=== PATIENT | female | born 1980 | race Caucasian/White ===

== ENCOUNTER 2020-08-08 15:35 | Emergency (ER) | payer OTHER, SELFPAY ==
--- NOTE | ~2020-08-08 | XR_ITS ---
EXAMINATION: XR foot RT min 3V EXAM DATE: 08/08/2020 16:04 INDICATION: No known recent injury provided at this time. Pain of the right foot. TECHNIQUE: Right foot dorsoplantar, lateral and oblique projections obtained and reviewed. Compariso n is made to prior examination from 02/24/2012. FINDINGS: Right metatarsal bones unremarkable. No periosteal reaction or band of sclerosis to sugges t subacute stress fracture. There are no acute fractures or dislocations identified. There is no s ubcutaneous gas. The soft tissue is unremarkable. There are no radiopaque foreign bodies. Small in ferior calcaneal spur. IMPRESSION: Small right calcaneal inferior spur. Reviewed, dictated and finalized at location A. SWITCHER
[2020-08-08 15:54] VITALS: BP 130/82; PULSE 83; RESP 18; TEMP 36.9; O2SAT 98
[2020-08-08] MEDS: KETOROLAC (*BKC) 60 MG/2 ML VIAL IM (16:04)
--- NOTE | 2020-08-08 16:36 | ED.GENADULT ---
HPI - General Adult General Chief complaint: Extremity Injury, Lower Stated complaint: R foot pain Time Seen by Provider: 08/08/20 16:18 Source: patient Mode of arrival: ambulatory Limitations: no limitations History of Present Illness HPI narrative: Uriel states she has had pain in her right foot, ongoing for months. This is a sharp pain, moderately severe to severe in the forefoot area. This is made worse with standing, or by bearing weight. Measures taken at home, including ibuprofen have not brought adequate relief. Related Data Home Medications Medication Instructions Recorded Confirmed No Home Medications 08/08/20 08/08/20 Allergies Allergy/AdvReac Type Severity Reaction Status Date / Time aspirin Allergy Nausea and Verified 08/08/20 15:52 Vomiting hydrocodone Allergy Nausea and Verified 08/08/20 15:52 Vomiting oxycodone Allergy Nausea and Verified 08/08/20 15:52 Vomiting Review of Systems Constitutional: Constitutional: Reports no additional constitutional complaints Eyes: Eyes: Reports no additional eye complaints ENT: Reports system reviewed and no additional complaints, except as documented Cardiovascular: Cardiovascular: Reports no additional cardiovascular complaints Respiratory: Respiratory: Reports no additional respiratory complaints Gastrointestinal: Gastrointestinal: Reports no additional gastrointestinal complaints Genitourinary: Genitourinary: Reports no additional female genitourinary complaints Musculoskeletal: Musculoskeletal: Reports no additional musculoskeletal complaints Integumentary/Breasts: Skin/Breast: Reports system reviewed and no additional complaints, except as docu Neurologic: Reports system reviewed and no additional complaints, except as documented Psychiatric: Psychiatric: Reports no additional psychiatric complaints Endocrine: Endocrine: Reports no additional endocrine complaints Hematologic/Lymphatic: Hematologic/Lymphatic: Reports no additional hematologic/lymphatic complaints Allergic/Immunologic: Allergic/Immunologic: Reports no additional allergic/immunologic complaints PMFSH Past Medical History Medical History (Updated 08/09/20 @ 04:59 by Patricio Rosas MD) CVA (cerebral vascular accident) Fibromyalgia Surgical History Surgical History No significant past surgical history Family History Family History (Updated 08/09/20 @ 04:56 by Patricio Rosas MD) Mother No significant family history Exam Const: General: healthy appearing and no acute distress Nutritional Appearance: well nourished Orientation/consciousness: patient oriented x3 HENMT: Head: normal to inspection Face and sinus: normal facial exam Eyes: Conjunctivae: conjunctivae normal Neck: Neck: normal visual inspection Chest: Chest palpation & inspection: normal inspection of the chest Resp: Effort & Inspection: normal respiratory effort Auscultation: clear to auscultation bilaterally Cardio: Rate: regular rate Rhythm: regular rhythm GI: GI Palp: Yes Soft to palpation Other: nontender Skin: General skin exam: normal color Neuro: General: patient oriented x3 and moves all extremities Other: She appears to have some numbness of the medial aspect of her great toe on the affected foot. It was hard to tell just what area was affected, but appears to be part of the great toe. I could appreciate no weakness in that foot whatsoever. It appears she has a bit of a mononeuritis in this area, which she says has been chronic and unchanged for many months. Extrem: General: normal to inspection Psych: Mental Status: mental status grossly normal Affect: Anxious affect present Thought content: Yes Normal thought content present Course Course Emergency Course: I reviewed physical exam findings with her. She appears to have some mild neurological deficits in the affected foot that may be due to a mononeu
== END 2020-08-08 16:54 | disposition home or self-care (01) ==
PROVIDERS: Emergency Provider Emergency Medicine; PCP Nurse Practitioner Family
DX: M79.671 Pain in right foot (principal)
CPT/HCPCS: 73630; 96372; 99283; J1885

== ENCOUNTER 2023-06-28 20:20 | Emergency (ER) | payer OTHER, SELFPAY ==
[2023-06-28 20:34] VITALS: PULSE 68; RESP 18; TEMP 37; O2SAT 97
[2023-06-28] MEDS: AMOXICILLIN/CLAVULANATE K 875-125 MG TAB 1 TABLET PO (20:48)
[2023-06-28] MEDS: methylPREDNISolone ACETATE 40 MG/ML VIAL 80 MG IM (20:49)
--- NOTE | 2023-06-28 21:00 | ED.ALLEREA ---
HPI - Allergic Reaction General Chief complaint: Allergic Reaction Stated complaint: Right Lower Lip Swelling Time Seen by Provider: 06/28/23 20:23 Source: patient and family Mode of arrival: ambulatory Limitations: no limitations History of Present Illness HPI narrative: this is a 42-year-old female who presents with right lower lip swelling that had a lip piercing approximately 1 month ago and earlier today noticed that there was some crusty discharge from the area and swelling had progressively gotten worse, no other symptoms no wheezing no tongue swelling no shortness of breath no fever chills. MD complaint: allergic reaction and facial swelling Onset (ago): hour(s) Exposure: unknown Symptoms: lip swelling Related Data Allergies Allergy/AdvReac Type Severity Reaction Status Date / Time acetaminophen [Vicodin] Allergy Intermediate nausea Verified 10/01/22 12:39 naproxen Allergy Intermediate Verified 10/01/22 12:39 sumatriptan [Imitrex] Allergy Intermediate headache, Verified 10/01/22 12:39 nausea aspirin Allergy Nausea and Verified 10/01/22 12:39 Vomiting hydrocodone Allergy Nausea and Verified 10/01/22 12:39 Vomiting oxycodone Allergy Nausea and Verified 10/01/22 12:39 Vomiting Sulfonamides Allergy Intermediate Uncoded 10/01/22 12:39 Review of Systems Review of Systems: All systems reviewed & are unremarkable except as noted in HPI and below PMFSH Past Medical History Medical History CVA (cerebral vascular accident) Fibromyalgia Surgical History Surgical History No significant past surgical history Family History Family History Mother No significant family history Social History Social History Smoking status: Never smoker Exam Const: General: healthy appearing and no acute distress Nutritional Appearance: well nourished Orientation/consciousness: patient oriented x3 Limitations: no limitations HENMT: Other: Right lower lip swelling around the piercing of her right lower lip with some crusty discharge Eyes: Conjunctivae: conjunctivae normal EOM: EOMs intact bilaterally Neck: Neck: normal visual inspection, no lymphadenopathy and no meningeal signs Chest: Chest palpation & inspection: normal inspection of the chest Resp: Effort & Inspection: normal respiratory effort Auscultation: clear to auscultation bilaterally Cardio: Rate: regular rate Rhythm: regular rhythm GI: GI Palp: Yes Soft to palpation Skin: Wounds: wounds noted Neuro: General: patient oriented x3 and moves all extremities Psych: Mental Status: mental status grossly normal Course Course Emergency Course: patient received a dose of Depo-Medrol IM 80mg, and dose of Augmentin. Vital Signs Vital signs: Vital Signs Temperature 37.0 C 06/28/23 20:34 Pulse Rate 68 06/28/23 20:34 Respiratory Rate 18 06/28/23 20:34 Pulse Oximetry 97 06/28/23 20:34 Oxygen Delivery Room Air 06/28/23 20:34 Temperature 37.0 C 06/28/23 20:34 Pulse Rate 68 06/28/23 20:34 Respiratory Rate 18 06/28/23 20:34 Pulse Oximetry 97 06/28/23 20:34 Oxygen Delivery Room Air 06/28/23 20:34 Critical Care Time Critical Care Time Critical Care Time: No Discharge Plan Discharge Clinical Impression: Cellulitis and abscess of face Allergic reaction Qualifiers: Encounter type: initial encounter Qualified Code(s): T78.40XA - Allergy, unspecified, initial encounter Patient Disposition: Home, Self-Care Condition: Stable Instructions: Antibiotic Form, Cellulitis (ED), Allergies (ED) Additional Instructions: take medicine as prescribed and follow-up primary care physician if symptoms persist or worsen. Prescriptions: New prednisone 20 mg tablet
[2023-06-28 21:09] VITALS: BP 135/74; PULSE 82; RESP 18; TEMP 36.8; O2SAT 99
== END 2023-06-28 21:14 | disposition home or self-care (01) ==
PROVIDERS: Emergency Provider Emergency Medicine; PCP Nurse Practitioner Family
DX: L03.211 Cellulitis of face (principal); L02.01 Cutaneous abscess of face; T78.40XA Allergy, unspecified, initial encounter; M79.7 Fibromyalgia; Z86.73 Personal history of transient ischemic attack (TIA), and cerebral infarction without residual deficits
CPT/HCPCS: 96372; 99283; A9270; J1030

== ENCOUNTER 2024-09-26 20:50 | Emergency (ER) | payer SELFPAY ==
--- NOTE | ~2024-09-26 | CT_ITS ---
CLINICAL INDICATION: Buttock abscess COMPARISON: None. TECHNIQUE: Multiple contiguous axial images of the abdomen and pelvis were performed following the ad ministration of with 100 mL Omnipaque-350 intravenous contrast The dose-length product (DLP) was 1518.55 mGy-cm. Automated exposure control and iterative reconstruction technique were employed. FINDINGS/OBSERVATIONS: Visualized lower thorax: The bilateral lung bases are clear. The heart is of normal size, without pericardial effusion. Small hiatal hernia is present. Liver: The liver enhances homogeneously, and is enlarged measuring 20 cm in longitudinal dimension. Gallbladder and biliary system: The gallbladder is only minimally distended, and otherwise unremarkable. Pancreas: The pancreas enhances homogeneously without ductal dilatation. Spleen: The spleen enhances homogeneously and is borderline enlarged measuring 12 cm in longitudinal dimensio n. Kidneys: The bilateral kidneys enhance symmetrically without hydronephrosis or renal calculi. Adrenal glands: Unremarkable. Gastrointestinal tract: Trace fecal stasis Minimal chronic change APPENDIX: The air-filled appendix is of normal caliber (axial series, images 108 through 126). Vasculature: Unremarkable. No aneurysmal dilatation or significant stenosis. Lymph nodes: No pathologically enlarged or morphologically suspicious lymph nodes within the retroperitoneum or at the root of the mesentery. Pelvic structures: The bladder is decompressed, limiting its evaluation. The uterus is anteverted and anteflexed, and otherwise unremarkable. Body wall and musculoskeletal: Metallic clips demonstrating significant streak artifact within the lower abdomen and pelvis. No significant degenerative disease within the lower thoracic or lumbosacral spine. Soft tissues: Within the soft tissues in the area of clinical concern is significant induration and peroneal thicke casey without a discrete drainable fluid collection appreciated. IMPRESSION: No drainable fluid collection within the area of clinical concern, as detailed above. Hepatomegaly. Borderline splenomegaly. Reviewed, dictated and finalized at location A. S AND SERVICE ASSOCIATE
[2024-09-26 20:50] VITALS: BP 120/81; PULSE 125; RESP 20; TEMP 36.4; O2SAT 98
--- NOTE | 2024-09-26 20:58 | ED.GENADULT ---
HPI - General Adult General Chief complaint: Skin/Abscess/Foreign Body Stated complaint: bug bite Time Seen by Provider: 09/26/24 20:53 History of Present Illness HPI narrative: Uriel is a 44F with a PMH of a CVA and fibromyalgia that presented with concerns of an infected spider bite on her left buttock. She felt a pinch on her buttock 3 days ago and later started to notice swelling pain, and drainage. She reports having a fever of up to 103 today. There is no nausea, vomiting, diarrhea, CP or dyspnea. Related Data Allergies Allergy/AdvReac Type Severity Reaction Status Date / Time acetaminophen (Vicodin) Allergy Intermediate nausea Verified 09/26/24 21:47 naproxen Allergy Intermediate Difficulty Verified 09/26/24 21:47 Breathing sumatriptan (Imitrex) Allergy Intermediate headache, Verified 09/26/24 21:47 nausea aspirin Allergy Nausea and Verified 09/26/24 21:47 Vomiting hydrocodone Allergy Nausea and Verified 09/26/24 21:47 Vomiting oxycodone Allergy Nausea and Verified 09/26/24 21:47 Vomiting Sulfonamides Allergy Intermediate Other Uncoded 09/26/24 21:47 Review of Systems Review of Systems: All systems reviewed & are unremarkable except as noted in HPI and below PMFSH Past Medical History Medical History Fibromyalgia CVA (cerebral vascular accident) Surgical History Surgical History No significant past surgical history Family History Family History Mother No significant family history Social History Social History Smoking status: Never smoker Exam Const: General: cooperative, healthy appearing, comfortable, no acute distress, well developed, alert, awake and Physically active Orientation/consciousness: oriented to person, oriented to place and oriented to time HENMT: Head: normal to inspection, normocephalic and atraumatic Ears: hearing grossly normal bilaterally and external ears normal Face/Nose/Sinus: Normal external nose present Eyes: General: appearance normal, both eyes and all related structures Periorbital: periorbital findings normal Sclera: sclerae normal Pupils: Equal, round and reactive pupils present Neck: Neck: normal visual inspection Chest: Chest palpation & inspection: normal inspection of the chest Resp: Effort & Inspection: normal respiratory effort, able to speak in complete sentences and no respiratory distress Cardio: Jugular venous distension: no JVD Skin: General skin exam: normal color and no rashes or lesions noted Other: left buttock had a 1 cm ulcer draining purulent drainage with underlying induration Neuro: General: oriented to person, oriented to place and oriented to time Cranial nerves: Yes Equal, round and reactive pupils present Extrem: General: normal to inspection Course Course Emergency Course: Ordered labs, wound culture, viral testing, clindamycin and IV fluids Labs revealed leukocytosis, mild anemia, elevated CRP, and otherwise normal chemistries Orderd CT scan. CLINICAL INDICATION: Buttock abscess COMPARISON: None. TECHNIQUE: Multiple contiguous axial images of the abdomen and pelvis were performed following the administration of with 100 mL Omnipaque-350 intravenous contrast The dose-length product (DLP) was 1518.55 mGy-cm. Automated exposure control and iterative reconstruction technique were employed. FINDINGS/OBSERVATIONS: Visualized lower thorax: The bilateral lung bases are clear. The heart is of normal size, without pericardial effusion. Small hiatal hernia is present. Liver: The liver enhances homogeneously, and is enlarged measuring 20 cm in longitudinal dimension. Gallbladder and biliary system: The gallbladder is only minimally distended, and otherwise unremarkable. Pancreas: The pancreas enhances homogeneously without ductal dilatation. Spleen: The spleen enhances homogeneously and is borderline enlarged measuring 12 cm in longitudinal dimension. Kidneys: The bilateral kidneys enhance symmetrically without hydronephrosis or renal calculi. Adrenal glands: Unremarkable. Gastrointestinal tract: Trace fecal stasis Minimal chronic change APPENDIX: The air-filled appendix is of normal caliber (axial series, images 108 through 126). Vasculature: Unremarkable. No aneurysmal dilatation or significant stenosis. Lymph nodes: No pathologically enlarged or morphologically suspicious lymph nodes within the retroperitoneum or at the root of the mesentery. Pelvic structures: The bladder is decompressed, limiting its evaluation. The uterus is anteverted and anteflexed, and otherwise unremarkable. Body wall and musculoskeletal: Metallic clips demonstrating significant streak artifact within the lower abdomen and pelvis. No significant degenerative disease within the lower thoracic or lumbosacral spine. Soft tissues: Within the soft tissues in the area of clinical concern is significant induration and peroneal thickening without a discrete drainable fluid collection appreciated. IMPRESSION: No drainable fluid collection within the area of clinical concern, as detailed above. Hepatomegaly. Borderline splenomegaly. Vital Signs Vital signs: Vital Signs Temperature 97.6 F 09/26/24 20:50 Pulse Rate 125 H 09/26/24 20:50 Respiratory Rate 20 09/26/24 20:50 Blood Pressure 120/81 09/26/24 20:50 Pulse Oximetry 98 09/26/24 20:50 Oxygen Delivery Room Air 09/26/24 20:50 Temperature 97.6 F 09/26/24 20:50 Pulse Rate 125 H 09/26/24 20:50 Respiratory Rate 20 09/26/24 20:50 Blood Pressure 120/81 09/26/24 20:50 Pulse Oximetry 98 09/26/24 20:50 Oxygen Delivery Room Air 09/26/24 20:50 Medical Decision Making Vital Signs Vital Signs: Vital Signs Temperature 97.6 F 09/26/24 20:50 Pulse Rate 125 H 09/26/24 20:50 Respiratory Rate 20 09/26/24 20:50 Blood Pressure 120/81 09/26/24 20:50 Pulse Oximetry 98 09/26/24 20:50 Oxygen Delivery Room Air 09/26/24 20:50 Temperature 97.6 F 09/26/24 20:50 Pulse Rate 125 H 09/26/24 20:50 Respiratory Rate 20 09/26/24 20:50 Blood Pressure 120/81 09/26/24 20:50 Pulse Oximetry 98 09/26/24 20:50 Oxygen Delivery Room Air 09/26/24 20:50 Lab Data 09/26/24 21:14 09/26/24 21:14 Labs: Lab Results 09/26/24 09/26/24 Range/Units 21:08 21:14 WBC 14.5 H (4.8-10.8) K/mm3 RBC 4.04 L (4.20-5.40) M/mm3 Hgb 10.9 L (12.0-15.0) g/dL Hct 33.5 L (35.0-49.0) % MCV 82.9 (78.0-102.0) fL MCH 27.0 (27.0-31.0) pg MCHC 32.5 (32-36) g/dL RDW 14.6 H (11.6-14.4) % Plt Count 335 (150-420) K/mm3 MPV 9.1 L (9.2-11.8) fl Immature Gran % (Auto) 0.4 H (0.0-0.0) % Neut % (Auto) 73.8 H (50.0-70.0) % Lymph % (Auto) 16.8 L (18.0-42.0) % [place] % (Auto) 7.9 (2.0-11.0) % Eos % (Auto) 0.8 L (1.0-6.0) % Baso % (Auto) 0.3 (0.0-1.0) % Lymph # (Auto) 2.43 (1.10-4.50) K/mm3 [place] # (Auto) 1.14 H (0.10-0.90) K/mm3 Eos # (Auto) 0.12 (0.02-0.50) K/mm3 Baso # (Auto) 0.04 (0.00-0.10) K/mm3 Abs Immat Gran (auto) 0.06 H (0.00-0.00) K/mm3 Absolute Neuts (auto) 10.69 H (1.70-7.20) K/mm3 Absolute Nucleated RBC 0.00 (0.00-0.00) K/mm3 Nucleated RBC % 0.0 (0-0.0) % Sodium 140 (136-145) mmol/L Potassium 3.7 (3.5-5.1) mmol/L Chloride 104 (98-108) mmol/L Carbon Dioxide 24 (21-32) mmol/L Anion Gap 12 (4-12) mmol/L BUN 9 (7-18) mg/dL Creatinine 0.75 (0.55-1.02) mg/dL Estim Creat Clear Calc 104 ml/min Estimated GFR > 60 (59 - ) Glucose 105 H (70-99) mg/dL Calculated Osmolality 288 (285-295) mOsm/kg Lactic Acid 1.2 (0.4-2.0) mmol/L Calcium 8.7 (8.5-10.1) mg/dL Total Bilirubin 0.3 (0.00-1.00) mg/dL AST < 10 L (15-37) U/L ALT 20 (14-59) U/L Alkaline Phosphatase 49 (46-116) U/L C-Reactive Protein 7.6 H (0.0-0.9) mg/dL Total Protein 6.8 (6.4-8.2) g/dL Albumin 3.3 L (3.4-5.0) g/dL Urine Test Negative Influenza A (RT-PCR) Negative (Negative) Influenza B (RT-PCR) Negative (Negative) RSV (RT-PCR) Negative (Negative) SARS-CoV-2 RNA (RT-PCR) Negative (Negative) Discharge Plan Discharge Clinical Impression: Cellulitis Patient Disposition: Home, Self-Care Condition: Stable Instructions: Cellulitis (ED) Patient Language: Citizen Of [place] Prescriptions: New clindamycin HCl 150 mg capsule 450 mg PO TID 5 Days Qty: 45 0RF Follow-up/Referrals: Olamide Dawson NP [Primary Care Provider] - Stand Alone Forms: Work/School Release IP
[2024-09-26 21:20] LABS: Basophils Absolute Auto 0.04 K/mm3 (0.00-0.10); Basophils Percent Auto 0.3 % (0.0-1.0); Eosinophils Absolute Auto 0.12 K/mm3 (0.02-0.50); Eosinophils Percent Auto 0.8 % (1.0-6.0); Hematocrit 33.5 % (35.0-49.0); Hemoglobin 10.9 g/dL (12.0-15.0); Immature Granulocyte Absolute 0.06 K/mm3 (0.00-0.00); Immature Granulocyte Percent A 0.4 % (0.0-0.0); Lymphocytes Absolute Auto 2.43 K/mm3 (1.10-4.50); Lymphocytes Percent Auto 16.8 % (18.0-42.0); Mean Corpuscular HGB Conc 32.5 g/dL (32-36); Mean Corpuscular Volume 82.9 fL (78.0-102.0); Mean Platelet Volume 9.1 fl (9.2-11.8); Monocytes Absolute Auto 1.14 K/mm3 (0.10-0.90); Monocytes Percent Auto 7.9 % (2.0-11.0); Neutrophils Absolute Auto 10.69 K/mm3 (1.70-7.20); Neutrophils Percent Auto 73.8 % (50.0-70.0); Platelet Count Result 335 K/mm3 (150-420); Red Blood Count 4.04 M/mm3 (4.20-5.40); Red Cell Distribution Width 14.6 % (11.6-14.4); White Blood Count 14.5 K/mm3 (4.8-10.8)
[2024-09-26] MEDS: CLINDAMYCIN 600 MG/D5W 50 ML 600 MG/50 ML PIGGYBACK 100 MG IVPB (21:23)
[2024-09-26] MEDS: SODIUM CHLORIDE 0.9% IV 1,000 ML 999 ML IV CONT (21:24)
[2024-09-26 21:34] LABS: Pregnancy On Board Control Positive; Urine Pregnancy Test Negative
[2024-09-26 21:36] LABS: Lactic Acid Reflex 1.2 mmol/L (0.4-2.0)
[2024-09-26 21:40] LABS: Alanine Aminotransferase 20 U/L (14-59); Albumin Level 3.3 g/dL (3.4-5.0); Alkaline Phosphatase 49 U/L (46-116); Anion Gap 12 mmol/L (4-12); Aspartate Amino Transferase < 10 U/L (15-37); Bilirubin,Total 0.3 mg/dL (0.00-1.00); Blood Urea Nitrogen 9 mg/dL (7-18); CRP 7.6 mg/dL (0.0-0.9); Calcium 8.7 mg/dL (8.5-10.1); Carbon Dioxide 24 mmol/L (21-32); Chloride 104 mmol/L (98-108); Estimated CRCL calculation 104 ml/min; Estimated Glomerular Filt Rate > 60; Glucose 105 mg/dL (70-99); Osmolality Calculated 288 mOsm/kg (285-295); Potassium 3.7 mmol/L (3.5-5.1); Sodium 140 mmol/L (136-145); Total Protein 6.8 g/dL (6.4-8.2)
[2024-09-26 21:59] LABS: SARS-CoV-2 RNA PCR Negative (Negative)
[2024-09-26 22:00] LABS: Influenza A QL RT-PCR Negative (Negative); Influenza B QL RT-PCR Negative (Negative); RSV RNA, RT-PCR Negative (Negative)
--- NOTE | 2024-09-26 22:07 | PC.NURSE ---
Pt gone to CT
[2024-09-26 23:00] VITALS: BP 125/75; PULSE 83; RESP 16; TEMP 37.1; O2SAT 100
--- NOTE | 2024-09-29 14:11 | PC.NURSE ---
culture from buttock not performed due to inclement weather and specimen stability. pt started on clindamycin. no change needed per dr forde.
--- OUTSIDE RECORDS SUMMARY | 2024-10-03 09:21 | XMS_ITS | Encounter Summary ---
Author Organization [facility] Address [address] [place] [address]. [place] [address] [place] [address] Care Team Providers Care Leaf Conditioner Helper Name Role Phone Unavailable Primary Care Provider Unavailabl e Encounter Details Date Type Department Care Team (Late st Contact Info) Description 10/22/[address] 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
--- OUTSIDE RECORDS SUMMARY | 2024-10-03 09:21 | XMS_ITS | Encounter Summary ---
Author Organization [facility] Address [address] [place] [address]. [place] [address] [place] [address] Care Team Providers Care Web Content Producer Name Role Phone Unavailable Primary Care Provider Unavailabl e Encounter Details Date Type Department Care Team (Late st Contact Info) Description 12/07/[address] [facility] [address] [place] [address] Alejandro Small MD [address] [place] [phone] Social History Tobacco Use Types Packs/Day Years Used Date Smoking Tobacco: Never Assessed Comments Unknown Sex and Gender Information Value Date Recorded Sex Assigned at Not on file Legal Sex Female 5:50 PM RETURN TO SERVICE INSPECTOR Gender Identity Not on file Sexual Orientation Not on file documented as of this encounter Plan of Treatment Not on file documented as of this encounter Visit Diagnoses Diagnosis Pain in joint, pelvic region and thigh documented in this encounter
--- OUTSIDE RECORDS SUMMARY | 2024-10-03 09:21 | XMS_ITS | Encounter Summary ---
Author Organization [facility] Address [address] [place] [address]. 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
--- OUTSIDE RECORDS SUMMARY | 2024-10-03 09:21 | XMS_ITS | Encounter Summary ---
Author Organization [facility] Address [address] [place] [address]. [place], [place] [id number] [place] [address] Care Team Providers Care Presser And Blocker Knitted Goods Name Role Phone Olamide Dawson Primary Care Provider [phone] Encounter Details Date Type Department Care Team (Latest Contact Info) Description 07/19/2021 Travel Social History Tobacco Use Types Packs/Day Years Used Date Smoking Tobacco: Every Day Cigarettes Smokeless Tobacco: Never Alcohol Use Standard Drinks/Week Comments Yes 0 (1 standard drink = 0.6 oz pur e alcohol) occ. 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 No / Unsure 07/19/2021 3:08 PM CDT documented as of this encounter Plan of Treatment Not on file documented as of this encounter Visit Diagnoses Not on filedocumented in this encounter Care Teams Presser And Blocker Knitted Goods Relationship Specialty Start Date End Date Olamide Dawson FNP [address] [place] [address] PCP - General NURSE PRACTITIONER 07/19/21 documented as of this encounter
--- OUTSIDE RECORDS SUMMARY | 2024-10-03 09:21 | XMS_ITS | Clinical Summary ---
Author Organization [facility] Address [address] [place] [address]. [place], [place] [id number] [place] [address] Care Team Providers Care Wharf Tender Name Role Phone Olamide Dawson [facility] Primary Care Provider [phone] Allergies Active Allergy Reactions Criticality Noted Date Comments Aspirin Swelling 07/19/2021 Sulfa Antibiotics Swelling 07/19/2021 Medications gabapentin (NEURONTIN) 100 MG capsule Take 1 capsule (100 mg total) by mouth 3 (three) times daily. 90 capsule 07/19/2021 Active Social History Tobacco Use Types Packs/Day Years Used Date Smoking Tobacco: Every Day Cigarettes Smokeless Tobacco: Never Alcohol Use Standard Drinks/Week Comments Yes 0 (1 standard drink = 0.6 oz pur e alcohol) occ. Comments No Sex and Gender Information Value Date Recorded Sex Assigned at Not on file Legal Sex Female 5:50 PM ACCOUNT SERVICES ANALYST Gender Identity Not on file Sexual Orientation Not on file Last Filed Vital Signs Vital Sign Reading Time Taken Comments Blood Pressure 132/91 07/19/2021 7:00 PM CDT Pulse 77 07/19/2021 6:06 PM CDT Temperature 37.5 ??C (99.5 ??F) 07/19/2021 3:12 PM CD T Respiratory Rate 18 07/19/2021 7:00 PM CDT Oxygen Saturation 99% 07/19/2021 7:00 PM CDT Inhaled Oxygen Concentration - - Weight 95.3 kg (210 lb) 07/19/2021 3:12 PM CDT Height 168.9 cm (5' 6.5 ) 07/19/2021 3:12 PM CDT Body Mass Index 33.39 07/19/2021 3:12 PM CDT Plan of Treatment Health Maintenance Due Date Last Done Comments Cervical Cancer Screening Pa p Smear (Age 30 to 64) Every 3 Years 1979 Colorectal Cancer Screening Colonoscopy (10 Years) 1979 Annual Physical 1982 Pneumococcal Vaccine: Pediat rics (0 to 5 Years) and At-Risk Patients (6 to 64 Years) (1 of 2 - PCV) 1985 Hepatitis C 1997 DTaP, Tdap and Td Vaccines ( 1 - Tdap) 1998 Hepatitis B Vaccines (1 of 3 - 19+ 3-dose series) 1998 Cervical Cancer Screening Pa p with HPV Testing (Age 30 to 64) Every 5 Years 2009 Cervical Cancer Screening with HPV 2009 Mammogram Screening 2019 COVID-19 Vaccine (2023-2 5 season) 2024 Influenza Adult (#1) 2024 HPV Vaccines Aged Out No longer eligi ble based on patient's age to complete this topic Meningococcal Vaccine Aged Out No kevan fiordaliza eligible based on patient's age to complete this topic RSV Immunizations Under 20 Months Aged Out No longer eligible based on patient's age to complete this topic Insurance Care Teams Wharf Tender Relationship Specialty Start Date End Date Olamide Dawson FNP [address] [place] [address] PCP - General NURSE PRACTITIONER 07/19/21
--- OUTSIDE RECORDS SUMMARY | 2024-10-03 09:21 | XMS_ITS | Encounter Summary ---
Author Organization [facility] Address [address] [place] [address]. [place], [place] [address] [place] [address] Care Team Providers Care Rotary Dump Operator Name Role Phone Unavailable Primary Care Provider Unavailabl e Encounter Details Date Type Department Care Team ([facility] st Contact Info) Description 03/10/2011 Abstract [facility] [address] [place] [address] [place] [address] [place] [address] [place] [address] Social History Tobacco Use Types Packs/Day Years Used Date Smoking Tobacco: Never Assessed Comments Unknown Sex and Gender Information Value Date Recorded Sex Assigned at Not on file Legal Sex Female 5:50 PM ADMINISTRATIVE ASSISTANT OFFICE MANAGER Gender Identity Not on file Sexual Orientation Not on file documented as of this encounter Plan of Treatment Not on file documented as of this encounter Visit Diagnoses Diagnosis Other, multiple, and unspecified sites, insect bite, nonvenomous documented in this encounter
--- OUTSIDE RECORDS SUMMARY | 2024-10-03 09:21 | XMS_ITS | Encounter Summary ---
Author Organization [facility] Address [address] [place] [address]. [place] [address] [place] [address] Care Team Providers Care Dining Server Name Role Phone Unavailable Primary Care Provider Unavailabl e Encounter Details Date Type Department Care Team (Late st Contact Info) Description 08/25/[address] [facility] [address] [place] [address] Alejandro Small MD [address] [place] [address] Social History Tobacco Use Types Packs/Day Years Used Date Smoking Tobacco: Never Assessed Comments Unknown Sex and Gender Information Value Date Recorded Sex Assigned at Not on file Legal Sex Female 5:50 PM TRACKWALKER Gender Identity Not on file Sexual Orientation Not on file documented as of this encounter Plan of Treatment Not on file documented as of this encounter Visit Diagnoses Not on filedocumented in this encounter
--- OUTSIDE RECORDS SUMMARY | 2024-10-03 09:21 | XMS_ITS | Encounter Summary ---
Author Organization [facility] Address [address] [place] [address]. [place] [address] [place] [address] Care Team Providers Care Fighter Pilot Name Role Phone Unavailable Primary Care Provider Unavailabl e Encounter Details Date Type Department Care Team (Late st Contact Info) Description 10/14/[address] [facility] [address] [place] [address] Alejandro Small MD [address] [place] [phone] Social History Tobacco Use Types Packs/Day Years Used Date Smoking Tobacco: Never Assessed Comments Unknown Sex and Gender Information Value Date Recorded Sex Assigned at Not on file Legal Sex Female 5:50 PM PORCELAIN WAXER Gender Identity Not on file Sexual Orientation Not on file documented as of this encounter Plan of Treatment Not on file documented as of this encounter Visit Diagnoses Not on filedocumented in this encounter
--- OUTSIDE RECORDS SUMMARY | 2024-10-03 09:21 | XMS_ITS | Encounter Summary ---
Author Organization [facility] Address formerly [facility]. [place], [place] [address] [place] [address] Care Team Providers Care Disbursement Clerk Name Role Phone Unavailable Primary Care Provider Unavailabl e Encounter Details Date Type Department Care Team (Late st Contact Info) Description 01/16/2015 Abstract [facility] [address] [place] [address] [place] [address] Sherwin Nathan MD [address] [place] [address] Social History Tobacco Use Types Packs/Day Years Used Date Smoking Tobacco: Never Assessed Comments Unknown Sex and Gender Information Value Date Recorded Sex Assigned at Not on file Legal Sex Female 5:50 PM RN BABY Gender Identity Not on file Sexual Orientation Not on file documented as of this encounter Plan of Treatment Not on file documented as of this encounter Visit Diagnoses Diagnosis Crushing injury of foot documented in this encounter
--- OUTSIDE RECORDS SUMMARY | 2024-10-03 09:21 | XMS_ITS | Encounter Summary ---
Author Organization [facility] Address [address] [place] [address]. [place] [address] [place] [address] Care Team Providers Care Survey Interviewer Name Role Phone Unavailable Primary Care Provider Unavailabl e Encounter Details Date Type Department Care Team (Late st Contact Info) Description 04/30/[address] [facility] [address] [place] [address] Alejandro Small MD [address] [place] [phone] Social History Tobacco Use Types Packs/Day Years Used Date Smoking Tobacco: Never Assessed Comments Unknown Sex and Gender Information Value Date Recorded Sex Assigned at Not on file Legal Sex Female 5:50 PM BRUSH AND BROOM CLIPPER Gender Identity Not on file Sexual Orientation Not on file documented as of this encounter Plan of Treatment Not on file documented as of this encounter Visit Diagnoses Diagnosis Low back pain Lumbago documented in this encounter
--- OUTSIDE RECORDS SUMMARY | 2024-10-03 09:21 | XMS_ITS | Encounter Summary ---
Author Organization [facility] Address [address] [place] [address]. [place], [place] [address] [place] [address] Care Team Providers Care Manager Credit Collections Name Role Phone Unavailable Primary Care Provider Unavailabl e Encounter Details Date Type Department Care Team (Late st Contact Info) Description 11/01/[address] [facility] [address] [place] [address] Sonu Tello MD [address] [place] [address] Social History Tobacco Use Types Packs/Day Years Used Date Smoking Tobacco: Never Assessed Comments Unknown Sex and Gender Information Value Date Recorded Sex Assigned at Not on file Legal Sex Female 5:50 PM COMPARISON SHOPPER Gender Identity Not on file Sexual Orientation Not on file documented as of this encounter Plan of Treatment Not on file documented as of this encounter Visit Diagnoses Diagnosis Pain in left knee Pain in joint, lower leg documented in this encounter
--- OUTSIDE RECORDS SUMMARY | 2024-10-03 09:21 | XMS_ITS | Encounter Summary ---
Author Organization [facility] Address [address] [place] [address]. [place] [address] [place] [address] Care Team Providers Care Cook Seafood Name Role Phone Unavailable Primary Care Provider Unavailabl e Encounter Details Date Type Department Care Team (Late st Contact Info) Description 04/08/[address] [facility] [address] [place] [address] Alejandro Small MD [address] [place] [phone] Social History Tobacco Use Types Packs/Day Years Used Date Smoking Tobacco: Never Assessed Comments Unknown Sex and Gender Information Value Date Recorded Sex Assigned at Not on file Legal Sex Female 5:50 PM FRATERNITY ADVISER Gender Identity Not on file Sexual Orientation Not on file documented as of this encounter Plan of Treatment Not on file documented as of this encounter Visit Diagnoses Not on filedocumented in this encounter
--- OUTSIDE RECORDS SUMMARY | 2024-10-03 09:21 | XMS_ITS | Encounter Summary ---
Author Organization [facility] Address [facility]. [place], [place] [id number] [place] [id number] Care Team Providers Care Application Spec Name Role Phone Olamide Dawson MEDICAL RECORD TRANSCRIBER Primary Care Provider [phone] Reason for Referral * Imaging (Emergency) - Closed Specialty Diagnoses / Procedures Referred By Stuart t Referred To Contact RADIOLOGY Procedures CT ABD+PEL W IV CON ONLY Ricky Longo MD [address] [place] [address] Phone: tel: fax: Referral ID Status Reason Start Date Expiration Date Visits Re quested Visits Authorized [id number] Closed 07/19/2021 08/19/2022 1 1 Reason for Visit * Reason Comments Medical Problem Encounter Details Date Type Department Care Team (Late st Contact Info) Description 07/19/2021 3:06 PM CDT - 07/19/2021 7:50 PM CDT Emergency [facility] [address] [place] [address] [place] [address] Ricky Longo MD [address] [place] [address] Medical Problem Discharge Disposition: Home or Self Care (Routine Discharge) Social History Tobacco Use Types Packs/Day Years Used Date Smoking Tobacco: Every Day Cigarettes Smokeless Tobacco: Never Alcohol Use Standard Drinks/Week Comments Yes 0 (1 standard drink = 0.6 oz pur e alcohol) occ. 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 No / Unsure 07/19/2021 3:08 PM CDT documented as of this encounter Last Filed Vital Signs Vital Sign Reading [...] Mass Index 33.39 07/19/2021 3:12 PM CDT documented in this encounter Discharge Instructions * Attachments The following attachments cannot be sent through Care Everywhere. * Flank Pain Discharge Instructions (Venezuelan) * White Blood Cell Count Differential Test (Venezuelan) documented in this encounter Medications at Time of Discharge gabapentin (NEURONTIN) 100 MG capsule Take 1 capsule (100 mg total) by mouth 3 (three) times daily. 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 * Ricky Longo MD - 07/19/2021 4:12 PM CDT Chief Complaint Chief Complaint Patient presents with ??? Medical Problem History of Present Illness 40-year-old female who has a started today with the left flank pain, the feels that this is radiating to her lower back. Pain 8 out of 10, associated with nausea and vomiting. She states she has somechills. Denies any urinary complaints. She had a bowel movement today normal. But she noted that itwas dark, black.. She states she has not taken anything for pain. She is not uncomfortable. She denies previous episodes of this type of pain. Medical History ALLERGIES: Allergies Allergen Reactions ??? Aspirin Swelling ??? Sulfa Antibiotics Swelling MEDICATIONS: Prior to Admission medications Medication Sig Start Date End Date Taking? Authorizing Provider gabapentin (NEURONTIN) 100 MG capsule Take 1 capsule (100 mg total) by mouth 3 (three) times daily.07/19/21 Yes Ricky Longo MD PAST MEDICAL HISTORY: Past Medical History: Diagnosis Date ??? Stroke (CMS/HCC) PAST SURGICAL HISTORY: Past Surgical History: Procedure Laterality Date ??? TUBAL LIGATION N/A partial tubal per pt. FAMILY HISTORY: No family history on file. SOCIAL HISTORY: Social History Tobacco Use ??? Smoking status: Current Every Day Smoker Packs/day: 0.50 ??? Smokeless tobacco: Never Used Substance Use Topics ??? Alcohol use: Yes Comment: occ. ??? Drug use: Never Review of Systems Review of Systems Gastrointestinal: Positive for abdominal pain. All other systems reviewed and are negative. Physical Exam Filed Vitals: 07/19/21 1512 07/19/21 1806 07/19/21 1830 07/19/21 1900 BP: (!) 142/82 (!) 138/111 138/82 (!) 132/91 Pulse: 88 77 Resp: 18 18 18 18 Temp: 99.5 ??F (37.5 ??C) TempSrc: Oral SpO2: 100% 99% 97% 99% Weight: 95.3 kg (210 lb) Height: 5' 6.5 (1.689 m) Physical Exam Vitals and nursing note reviewed. Constitutional: Appearance: Normal appearance. HENT: Head: Normocephalic. Nose: Nose normal. Mouth/Throat: Mouth: Mucous membranes are moist. Eyes: Pupils: Pupils are equal, round, and reactive to light. Cardiovascular: Rate and Rhythm: Normal rate and regular rhythm. Pulses: Normal pulses. Heart sounds: Normal heart sounds. Pulmonary: Effort: Pulmonary effort is normal. Breath sounds: Normal breath sounds. Abdominal: General: Abdomen is flat. Bowel sounds are normal. There is no distension. Palpations: Abdomen is soft. There is no mass. Tenderness: There is abdominal tenderness. There is left CVA tenderness. There is no right CVA tenderness, guarding or rebound. Comments: Tenderness on percussion of the left lower quadrant, M palpation and percussion of the left flank of the abdomen. There is no rebound, there is no guarding. Also just touching of the skin of the left middle axillary flank is tender. Musculoskeletal: General: Normal range of motion. Cervical back: Normal range of motion. Skin: General: Skin is warm. Neurological: General: No focal deficit present. Mental Status: She is alert and oriented to person, place, and time. Mental status is at baseline. Diagnostic Studies / Procedures ELECTROCARDIOGRAMS: No results found for this visit on 07/19/21. LABORATORY STUDIES: Results for orders placed or performed during the hospital encounter of 07/19/21 URINALYSIS Result Value Ref Range COLOR (U) YELLOW TRANSPARENCY CLEAR Specific [place] (U) 1.020 1.000 - 1.025 U PH 7.0 5.0 - 8.0 LEUKOCYTE ESTERASE NEGATIVE NEGATIVE NITRITES NEGATIVE NEGATIVE PROTEIN (U) NEGATIVE NEGATIVE URINE GLUCOSE NEGATIVE NEGATIVE U KETONES NEGATIVE NEGATIVE UROBILINOGEN 0.2 <1.0 EU/DL BILIRUBIN (U) NEGATIVE NEGATIVE BLOOD 1+ (A) NEGATIVE WBC/HPF 0-5 0 - 5 /HPF RBC/HPF 0-5 0 - 5 /HPF EPI/HPF OCCASIONAL /LPF CBC W/DIFF AUTOMATED Result Value Ref Range WBC 14.1 (H) 4.0 - 10.8 x10'3/uL RBC 4.50 4.10 - 5.40 x10'6/uL HGB 12.9 12.0 - 16.0 G/DL HCT 40.2 36.0 - 47.0 % MCV 89.3 78.0 - 100.0 FL MCH 28.7 27.0 - 31.0 PG MCHC 32.1 (L) 33.0 - 36.0 G/DL RDW 13.4 11.5 - 14.5 % PLT 288 150 - 350 x10'3/uL MPV 10.0 7.4 - 10.4 FL Differential Comment NORMAL REFERENCE RANGE NOT ESTABLISHED FOR THE PROPORTIONAL LEUKOCYTE DIFFERENTIAL. SEG NEUTROPHILS 67.3 % LYMPHOCYTES 26.1 % MONOCYTES 5.3 % EOSINOPHILS 0.7 % BASOPHILS 0.2 % IMMATURE GRANS 0.4 % NRBC 0.0 % ABS. NEUTROPHILS 9.50 (H) 1.60 - 8.30 x10'3/uL ABS. LYMPHOCYTES 3.68 0.80 - 4.70 x10'3/uL ABS. MONOCYTES 0.75 0.00 - 1.50 x10'3/uL ABS. EOSINOPHILS 0.10 0.00 - 0.40 x10'3/uL ABS. BASOPHILS 0.03 0.00 - 0.20 x10'3/uL ABS. IMMATURE GRANULOCYTES 0.05 (H) 0.00 - 0.03 x10'3/uL ABS. NUCLEATED RBC'S 0.00 0.00 x10'3/uL PROTIME/INR, VENOUS Result Value Ref Range Protime 11.8 10.2 - 12.9 SEC INR 1.0 0.9 - 1.1 COMPREHENSIVE METABOLIC PANEL Result Value Ref Range SODIUM 141 136 - 145 MMOL/L POTASSIUM 4.1 3.5 - 5.1 MMOL/L CHLORIDE S/P/B 105 98 - 107 MMOL/L CO2 27.0 21.0 - 32.0 MMOL/L GLUCOSE 91 70 - 99 MG/DL BUN 12 6 - 24 MG/DL CREATININE S/P/B 0.67 0.55 - 1.02 MG/DL CALCIUM 9.0 8.4 - 10.5 MG/DL BILIRUBIN TOTAL S/P/B 0.2 0.2 - 1.0 MG/DL ALKALINE PHOSPHATASE S/P/B 45 37 - 98 U/L AST 12 (L) 15 - 37 U/L ALT 20 14 - 59 U/L TOTAL PROTEIN S/P/B 7.5 6.4 - 8.2 G/DL ALBUMIN S/P/B 3.8 3.4 - 5.0 G/DL ANION GAP 9.0 5.0 - 15.0 MMOL/L OSMOLALITY (CALC) 291 MOSM/KG eGFR Non-Afr. Amer. >90 >89 ML/MIN/1.73 M2 eGFR Afr. Amer. >90 >89 ML/MIN/1.73 M2 GFR NOTES GFR REFERENCES: LIPASE Result Value Ref Range LIPASE 70 (L) 73 - 393 UNITS/L AMYLASE Result Value Ref Range AMYLASE S/P/B 46 25 - 115 UNITS/L C-REACTIVE PROTEIN Result Value Ref Range C-REACTIVE PROTEIN 1.65 (H) <0.30 mg/dL IMAGING STUDIES XR CHEST PA+LAT Final Result by User, [id number] (07/19 1936) Examination: XR CHEST PA+LAT Exam time: 07/19/2021 7:24 PM Clinical history:Left flank pain Comparison: 07/19/2021 CT abdomen pelvis Technique: PA, lateral Findings: The cardiac/mediastinal contour is within normal limits. The pulmonary vasculature is within normal limits. No focal pulmonary consolidation. No pleural effusion. No pneumothorax. IMPRESSION: No radiographic evidence of acute cardiopulmonary disease. Dictated By: Wilfredo Pemberton on 07/19/2021 7:30 PM The attending radiologist has reviewed the image(s) and agrees with the content of this report. Referred By: RICKY LONGO Interpreted By: Wilfredo Pemberton, 07/19/2021 7:[address] ABD+PEL W IV CON ONLY Final Result by User, [id number] (07/19 1838) PROCEDURE: CT ABD+PEL W CON HISTORY: Left-sided abdominal pain. TECHNIQUE: Helical CT of the abdomen and pelvis was performed using non-ionic intravenous contrast. A dose lowering technique was used for this procedure, which may include, but is not limited to, dose reduction technique, automated exposure control, the use of iterative reconstruction, and ALARA (As Low As Reasonably Achievable) / Image Gently techniques. COMPARISON: CT abdomen and pelvis with and without contrast, 10/22/2007. FINDINGS CT ABDOMEN/PELVIS: Lower thorax: The lung bases are clear. The heart size is normal. Liver: The liver is normal in size. There is no intrahepatic mass. Biliary tree: The gallbladder is present. There is no biliary ductal dilatation. Spleen: unremarkable Pancreas: Unremarkable. Adrenal glands: Unremarkable. Kidneys: There are bilateral symmetric nephrograms without hydronephrosis. Lymph nodes: Abdomen: There is no abdominal adenopathy. Pelvis: There is no pelvic adenopathy. Vasculature: The aorta is normal caliber. Peritoneum/mesentery/omentum: There is no free fluid or free air. A nonspecific metallic extraluminal radiopaque foreign body throughout the abdomen and pelvis. GI tract: There is no bowel obstruction. The appendix normal without evidence of acute inflammation. Pelvic urogenital structures:There is mild circumferential wall thickening of the urinary bladder, which may related to underdistention. The uterus is present. There is no adnexal mass. Body wall: There is minimal degenerative changes of the thoracolumbar spine. No aggressive osseous lesions are identified. Alne: (S/I) = series number / image number IMPRESSION: 1. No acute abnormality is seen within the abdomen or pelvis. Referred By: RICKY LONGO Interpreted By: Anayeli Akbar MD, 07/19/2021 6:26 PM ED Course / Medical Decision Making MDM Number of Diagnoses or Management Options Left flank pain Leukocytosis Diagnosis management comments: 40-year-old female with history of fibromyalgia, has come to the emergency room for evaluation of pain on the left flank close to the mid axillary line. The percussion of the left costovertebral angle was positive, as well as the left flank abdomen, and clear white counts 14. Which was concerning for any acute intra-abdominal process. CT scan of the abdomen pelvis with contrast done was negative for any acute findings. Chest ray was done which did not show any infiltrates. A second exam with the patient noted that the pain is more superficial, without pressure, more localized in the skin. There is no rash in the area. Multiple differential diagnoses were explained to the patient, between UTI, kidney stone, surgical abdomen, fibromyalgia, shingles. Unclear the cause of her pain at this moment since the patient does not have any rash. Recommended to follow-up this pain with the primary care provider, and repeat your cell count early next week. She was asked to return to the emergency room the pain is unbearable. Or has other manifestations such as severenausea and vomiting. Fevers. ED Course as of Jul 19 1949 Audelia Jul 19, [id number] The patient is noted comfortable, however she states she is still on pain. No nausea, no vomiting noted. She had a difficult IV access, failed attempts for CT with contrast, then was agreeable with anesthesia for IV access. [EG] 1912 The patient was indicated Toradol, she states she takes ibuprofen and has no reaction to it. She states the aspirin only makes her vomit. [EG] 1919 The patient now states she has Fibromyalgia, and she was being treated with lyrica and stoppedtaking it. And noted just touching of the skin of the area reproduces pain, with no pressure. [EG] ED Course User Index [EG] Ricky Longo MD Clinical Impression Left flank pain (Primary) Leukocytosis Disposition: Discharge Ricky Longo MD 07/19/211948 * Madai Hameed RN - 07/19/2021 3:11 PM CDT Patient comes in today with left side pain rating it at an 8. States that the pain started Friday morning. documented in this encounter Plan of Treatment Not on file documented as of this encounter Procedures Procedure Name Priority Date/Time Associated Diagnosis Comments XR CHEST PA+LAT STAT 07/19/2021 7:[address] ABD+PEL W CON STAT 07/19/2021 6:35 PM CDT PROTHROMBIN TIME, VENOUS STAT 07/19/2021 4:16 PM CDT COMPREHENSIVE METABOLIC PANEL STAT 07/19/2021 4:16 PM CDT C-REACTIVE PROTEIN STAT 07/19/2021 4: 16 PM CDT CBC W/DIFF AUTOMATED STAT 07/19/2021 4:16 PM CDT AMYLASE STAT 07/19/2021 4:16 PM CDT LIPASE STAT 07/19/2021 4:16 PM CDT HC URINALYSIS AUTO W/MICRO STAT 07/19/2021 3:20 PM CDT documented in this encounter Results * XR CHEST PA+LAT (07/19/2021 7:24 PM CDT) Anatomical Region Laterality Modality Chest Radiographic Haylee ging 07/19/2021 7:30 PM CDT Impressions 07/19/2021 7:35 PM CDT IMPRESSION: No radiographic evidence of acute cardiopulmonary disease. Dictated By: Wilfredo Pemberton on 07/19/2021 7:30 PM The attending radiologist has reviewed the image(s) and agrees with the content of this report. Referred By: RICKY LONGO Interpreted By: Wilfredo Pemberton, 07/19/2021 7:30 PM Narrative 07/19/2021 7:35 PM CDT Examination: XR CHEST PA+LAT Exam time: 07/19/2021 7:24 PM Clinical history:Left flank pain ?? Comparison: 07/19/2021 CT abdomen pelvis Technique: PA, lateral Findings: The cardiac/mediastinal contour is within normal limits. The pulmonary vasculature is within normal limits. No focal pulmonary consolidation. No pleural effusion. No pneumothorax. Procedure Note Dontae Ricardo MD - 07/19/2021 Examination: XR CHEST PA+LAT Exam time: 07/19/2021 7:24 PM Clinical history:Left flank pain Comparison: 07/19/2021 CT abdomen pelvis Technique: PA, lateral Findings: The cardiac/mediastinal contour is within normal limits. Thepulmonary vasculature is within normal limits. No focal pulmonaryconsolidation. No pleural effusion. No pneumothorax. IMPRESSION: No radiographic evidence of acute cardiopulmonary disease. Dictated By: Wilfredo Pemberton on 07/19/2021 7:30 PM The attending radiologist has reviewed the image(s) and agrees with thecontent of this report. Referred By: RICKY LONGO Interpreted By: Wilfredo Pemberton, 07/19/2021 7:30 PM Ricky Longo MD GENERAL IMAGING Final Result * CT ABD+PEL W IV CON ONLY (07/19/2021 6:35 PM CDT) Anatomical Region Laterality Modality Abdomen Computed Tomogra phy 07/19/2021 6:26 PM CDT Impressions 07/19/2021 6:37 PM CDT IMPRESSION: ?? 1. ??No acute abnormality is seen within the abdomen or pelvis. Referred By: RICKY LONGO Interpreted By: Anayeli Akbar MD, 07/19/2021 6:26 PM Narrative 07/19/2021 6:37 PM CDT PROCEDURE: ??CT ABD+PEL W CON HISTORY: ??Left-sided abdominal pain. TECHNIQUE: ??Helical CT of the abdomen and pelvis was performed using non-ionic intravenous contrast. ?? A dose lowering technique was used for this procedure, which may include, but is not limited to, dose reduction technique, automated exposure control, the use of iterative reconstruction, and ALARA (As Low As Reasonably Achievable) / Image Gently techniques. COMPARISON: ??CT abdomen and pelvis with and without contrast, 10/22/2007. FINDINGS CT ABDOMEN/PELVIS: Lower thorax: ??The lung bases are clear. The heart size is normal. Liver: The liver is normal in size. There is no intrahepatic mass. Biliary tree: The gallbladder is present. There is no biliary ductal dilatation. Spleen: unremarkable Pancreas: ??Unremarkable. Adrenal glands: ??Unremarkable. Kidneys: ??There are bilateral symmetric nephrograms without hydronephrosis. Lymph nodes: Abdomen: There is no abdominal adenopathy. Pelvis: There is no pelvic adenopathy. Vasculature: ??The aorta is normal caliber. Peritoneum/mesentery/omentum: ??There is no free fluid or free air. A nonspecific metallic extraluminal radiopaque foreign body throughout the abdomen and pelvis. GI tract: ??There is no bowel obstruction. The appendix normal without evidence of acute inflammation. Pelvic urogenital structures:There is mild circumferential wall thickening of the urinary bladder, which may related to underdistention. The uterus is present. There is no adnexal mass. Body wall: ??There is minimal degenerative changes of the thoracolumbar spine. No aggressive osseous lesions are identified. Lane: (S/I) = series number / image number Procedure Note Anayeli Akbar MD - 07/19/2021 PROCEDURE: CT ABD+PEL W CON HISTORY: Left-sided abdominal pain. TECHNIQUE: Helical CT of the abdomen and pelvis was performed usingnon-ionic intravenous contrast. A dose lowering technique was used for this procedure, which may include,but is not limited to, dose reduction technique, automated exposurecontrol, the use of iterative reconstruction, and ALARA (As Low AsReasonably Achievable) / Image Gently techniques. COMPARISON: CT abdomen and pelvis with and without contrast, 10/22/2007. FINDINGS CT ABDOMEN/PELVIS: Lower thorax: The lung bases are clear. The heart size is normal. Liver: The liver is normal in size. There is no intrahepatic mass. Biliary tree: The gallbladder is present. There is no biliary ductaldilatation. Spleen: unremarkable Pancreas: Unremarkable. Adrenal glands: Unremarkable. Kidneys: There are bilateral symmetric nephrograms withouthydronephrosis. Lymph nodes: Abdomen: There is no abdominal adenopathy. Pelvis: There is no pelvic adenopathy. Vasculature: The aorta is normal caliber. Peritoneum/mesentery/omentum: There is no free fluid or free air. Anonspecific metallic extraluminal radiopaque foreign body throughout theabdomen and pelvis. GI tract: There is no bowel obstruction. The appendix normal withoutevidence of acute inflammation. Pelvic urogenital structures:There is mild circumferential wall thickeningof the urinary bladder, which may related to underdistention. The uterusis present. There is no adnexal mass. Body wall: There is minimal degenerative changes of the thoracolumbarspine. No aggressive osseous lesions are identified. Lane: (S/I) = series number / image number IMPRESSION: 1. No acute abnormality is seen within the abdomen or pelvis. Referred By: RICKY LONGO Interpreted By: Anayeli Akbar MD, 07/19/2021 6:26 PM Ricky Lonog MD CT Final Result * (ABNORMAL) C-REACTIVE PROTEIN (07/19/2021 4:16 PM CDT) C-REACTIVE PROTEIN 1.65(H) <0.30 mg/dL 07/19/2021 4:38 PM CDT [facility] 07/19/2021 4:16 PM CDT us Ricky Longo MD LABORATORY Final Result Performing Organization Address City/[facility]/ZIP Co de Phone Number [facility] [address] [place] [address], * AMYLASE (07/19/2021 4:16 PM CDT) AMYLASE S/P/B 46 25 - 115 UNITS/L 07/19/2021 4:38 PM CDT [facility] 07/19/2021 4:16 PM CDT us Ricky Longo MD LABORATORY Final Result Performing Organization Address City/[facility]/ZIP Co de Phone Number [facility] [address] [place] [address], * (ABNORMAL) LIPASE (07/19/2021 4:16 PM CDT) LIPASE 70(L) 73 - 393 UNITS/L 07/19/2021 4:38 PM CDT [facility] 07/19/2021 4:16 PM CDT Ricky Longo MD LABORATORY Final Result [facility] [email or web address] [place], [place] [address] [phone] * (ABNORMAL) COMPREHENSIVE METABOLIC PANEL (07/19/2021 4:16 PM CDT) SODIUM S/P/B 141 136 - 145 MMOL/L 07/19/2021 4:38 PM CDT [facility] POTASSIUM S/P/B 4.1 3.5 - 5.1 MMOL/L 07/19/2021 4:38 PM CDT [facility] CHLORIDE S/P/B 105 98 - 107 MMOL/L 07/19/2021 4:38 PM CDT [facility] CO2 27.0 21.0 - 32.0 MMOL/L 07/19/2021 4:38 PM CDT [facility] GLUCOSE 91 70 - 99 MG/DL 07/19/2021 4:38 PM CDT [facility] Comment: FASTING GLUCOSE 100 TO 125 MG/DL IS CONSISTENT WITH IMPAIRED FASTING GLUCOSE. FASTING GLUCOSE >125 MG/DL IS CONSISTENT WITH DIABETES. RANDOM GLUCOSE >200 MG/DL WITH HYPERGLYCEMIC SYMPTOMS IS CONSISTENT WITH DIABETES. PER ADA GUIDELINES BUN 12 6 - 24 MG/DL 07/19/2021 4:38 PM CDT [facility] CREATININE S/P/B 0.67 0.55 - 1.02 MG/DL 07/19/2021 4:38 PM CDT [facility] CALCIUM S/P/B 9.0 8.4 - 10.5 MG/DL 07/19/2021 4:38 PM CDT [facility] BILIRUBIN TOTAL S/P/B 0.2 0.2 - 1.0 MG/DL 07/19/2021 4:38 PM CDT [facility] Comment: THIS ASSAY IS NOT RECOMMENDED FOR PATIENTS UNDERGOING TREATMENT WITH ELTROMBOPAG DUE TO THE POTENTIAL FOR FALSELY ELEVATED RESULTS. ALKALINE PHOSPHATASE S/P/B 45 37 - 98 U/L 07/19/2021 4:38 PM [facility] AST 12(L) 15 - 37 U/L 07/19/2021 4:38 PM [facility] ALT 20 14 - 59 U/L 07/19/2021 4:38 PM [facility] TOTAL PROTEIN S/P/B 7.5 6.4 - 8.2 G/DL 07/19/2021 4:38 PM [facility] ALBUMIN S/P/B 3.8 3.4 - 5.0 G/DL 07/19/2021 4:38 PM [facility] ANION GAP 9.0 5.0 - 15.0 MMOL/L 07/19/2021 4:38 PM [facility] OSMOLALITY (CALC) 291 MOSM/KG 021 4:38 PM [facility] Comment:REFERENCE RANGE NOT ESTABLISHED EGFR NON-AFR. AMER. >90 >89 ML/MIN/1. 73 M2 07/19/2021 4:38 PM [facility] EGFR AFR. AMER. >90 >89 ML/MIN/1. 73 M2 07/19/2021 4:38 PM [facility] GFR NOTES GFR REFERENCE S: 07/19/2021 4:38 PM [facility] Comment: THE ESTIMATED GFR IS CALCULATED USING THE 2009 CKD-EPI EQUATION. THE FOLLOWING CATEGORIES FOR GRADING RENAL FUNCTION ARE RECOMMENDED BY THE INTERNATIONAL SOCIETY OF NEPHROLOGY (KDIGO 2012 CLINICAL PRACTICE GUIDELINE). G1,NORMAL OR HIGH: >89 ml/min/1.73 m2 G2,MILDLY DECREASED: 60-89 ml/min/1.73 m2 G3A,MILDLY TO MODERATELY DECREASED: 45-59 ml/min/1.73 m2 G3B,MODERATELY TO SEVERELY DECREASED: 30-44 ml/min/1.73 m2 G4,SEVERELY DECREASED: 15-29 ml/min/1.73 m2 G5,KIDNEY FAILURE: <15 ml/min/1.73 m2 07/19/2021 4:16 PM CDT us Ricky Longo MD LABORATORY Final Result [facility] [address] [place] [address], * PROTIME/INR, VENOUS (07/19/2021 4:16 PM CDT) PROTIME 11.8 10.2 - 12.9 SEC 07/19/2021 4:33 PM CDT [facility] INR 1.0 0.9 - 1.1 07/19/2021 4:33 PM CDT [facility] 07/19/2021 4:16 PM CDT us Ricky Longo MD LABORATORY Final Result Performing Organization Address City/[facility]/ZIP Co de Phone Number [facility] [address] [place] [address], * (ABNORMAL) CBC W/DIFF AUTOMATED (07/19/2021 4:16 PM CDT) WBC 14.1(H) 4.0 - 10.8 x10'3/uL 07/19/2021 4:27 PM CDT [facility] RBC 4.50 4.10 - 5.40 x10'6/uL 07/19/2021 4:27 PM CDT [facility] HGB 12.9 12.0 - 16.0 G/DL 07/19/2021 4:27 PM CDT [facility] [facility] HCT 40.2 36.0 - 47.0 % 07/19/2021 4:27 PM CDT [facility] MCV 89.3 78.0 - 100.0 FL 07/19/2021 4:27 PM CDT [facility] MCH 28.7 27.0 - 31.0 PG 07/19/2021 4:27 PM CDT [facility] MCHC 32.1(L) 33.0 - 36.0 G/DL 07/19/2021 4:27 PM CDT [facility] RDW 13.4 11.5 - 14.5 % 07/19/2021 4:27 PM CDT [facility] PLT 288 150 - 350 x10'3/uL 07/19/2021 4:27 PM CDT [facility] MPV 10.0 7.4 - 10.4 FL 07/19/2021 4:27 PM CDT [facility] DIFFERENTIAL COMMENT NORMAL REFERENCE RANGE NOT ESTABLISHED FOR THE PROPORTIONAL LEUKOCYTE DIFFERENTIAL. 07/19/2021 4:27 PM CDT [facility] SEG NEUTROPHILS 67.3 % 4:27 PM CDT [facility] LYMPHOCYTES 26.1 % 07/19/2021 4:27 PM CDT [facility] MONOCYTES 5.3 % 07/19/2021 4:27 PM CDT [facility] EOSINOPHILS 0.7 % 07/19/2021 4:27 PM CDT [facility] BASOPHILS 0.2 % 07/19/2021 4:27 PM CDT [facility] IMMATURE GRANS % 0.4 % 07/19/20 4:27 PM CDT [facility] NRBC 0.0 % 07/19/2021 4:27 PM CDT [facility] ABS. NEUTROPHILS 9.50(H) 1.60 - 8.30 x10'3/uL 07/19/2021 4:27 PM CDT [facility] ABS. LYMPHOCYTES 3.68 0.80 - 4.70 x10'3/uL 07/19/2021 4:27 PM CDT [facility] ABS. MONOCYTES 0.75 0.00 - 1.50 x10'3/uL 07/19/2021 4:27 PM CDT [facility] ABS. EOSINOPHILS 0.10 0.00 - 0.40 x10'3/uL 07/19/2021 4:27 PM CDT [facility] ABS. BASOPHILS 0.03 0.00 - 0.20 x10'3/uL 07/19/2021 4:27 PM CDT [facility] ABS. IMMATURE GRANULOCYTES 0.05(H) 0.00 - 0.03 x10'3/uL 07/19/2021 4:27 PM CDT [facility] ABS. NUCLEATED RBC'S 0.00 0.00 x10'3/uL 07/19/2021 4:27 PM CDT [facility] 07/19/2021 4:16 PM CDT Ricky Longo MD LABORATORY Final Result [facility] [address] [email or web address] [address], * (ABNORMAL) URINALYSIS (07/19/2021 3:20 PM CDT) COLOR (U) YELLOW 07/19/2021 3:47 PM CDT [facility] TRANSPARENCY CLEAR 07/19/2021 3:47 PM CDT [facility] SPECIFIC GRAVITY (U) 1.020 1.000 - 1.025 07/19/2021 3:47 PM CDT [facility] U PH 7.0 5.0 - 8.0 07/19/2021 3:47 PM CDT [facility] LEUKOCYTES (U) NEGATIVE NEGATIVE 07/19/2021 3:47 PM CDT [facility] NITRITES NEGATIVE NEGATIVE 07/19/2021 3:47 PM CDT [facility] PROTEIN (U) NEGATIVE NEGATIVE 07/19/2021 3:47 PM CDT [facility] URINE GLUCOSE NEGATIVE NEGATIVE 07/19/2021 3:47 PM CDT [facility] KETONES MG/DL (U) NEGATIVE NEGATIVE 07/19/2021 3:47 PM CDT [facility] UROBILINOGEN 0.2 <1.0 EU/DL 07/19/2021 3:47 PM CDT [facility] BILIRUBIN (U) NEGATIVE NEGATIVE 07/19/2021 3:47 PM CDT [facility] BLOOD (U) 1+(A) NEGATIVE 07/19/2021 3:47 PM CDT [facility] WBC/HPF 0-5 0 - 5 /HPF 07/19/2021 3:47 PM CDT [facility] RBC/HPF 0-5 0 - 5 /HPF 07/19/2021 3:47 PM CDT [facility] EPI/HPF OCCASIONAL /LPF 07/19/2021 3:47 PM CDT [facility] URINE SPECIMEN OBTAINED BY CLEAN CATCH PROCEDURE / Unknown 07/19/2021 3:20 PM CDT Ricky Longo MD URINE ORDERABLES Final Result [facility] [address] [place] [address], documented in this encounter Visit Diagnoses Diagnosis Left flank pain- Primary Abdominal pain, unspecified site Leukocytosis Leukocytosis, unspecified documented in this encounter Administered Medications Inactive Administered Medications - up to 3 most recent administrations Medication Order MAR Action Action Date Dose Rate Site iopamidol (ISOVUE-370) 76 % injection 95 mL 95 mL, Intravenous, IMG once as needed, Contrast, 1 dose, Starting on Fri07/19/21 at 1835, Until Fri07/19/21 at 1835 Given 07/19/2021 6:35 PM CDT 95 mLs ketorolac (TORADOL) 30 MG/ML injection 1 dose, Starting on Audelia 07/19/21 at 1916, Until Audelia 07/19/21 at 1932, Created by asift vereniceide ketorolac (TORADOL) injection 30 mg 30 mg, Intravenous, Once, 1 dose, On Audelia 07/19/21 at 1915, For IV administration, give over 15 seconds. Given 07/19/2021 7:32 PM CDT 30 mg ondansetron (ZOFRAN) injection 4 mg 4 mg, Intravenous, Once, 1 dose, On Audelia 07/19/21 at 1545, IV push over 2-5 minutes. Given 07/19/2021 5:39 PM CDT 4 mg sodium chloride 0.9% bolus infusion SOLN 1,000 mL 1,000 mL, Intravenous, Administer over 15 Minutes, Once, 1 dose, On Audelia 07/19/21 at 1545 New Bag 07/19/2021 5:37 PM CDT 1,000 mLs documented in this encounter Active and Recently Administered Medications Times are shown in CDT. Scheduled Medication Order 07/17/2021 07/18/2021 07/19/2021 gabapentin (NEURONTIN) capsule 100 mg 100 mg, Oral, Once, 1 dose, On Audelia 07/19/21 at 1930 1943 (Not Given - Pr ovider: Micaela Sheikh RN - Reason: Patient/family declined) ketorolac (TORADOL) injection 30 mg (COMPLETED) 30 mg, Intravenous, Once, 1 dose, On Audelia 07/19/21 at 1915, For IV administration, give over 15 seconds. 193 (Given - Provid er: Micaela Sheikh RN) morphine injection 2 mg 2 mg, Intravenous, Once, 1 dose, On Audelia 07/19/21 at 1545 1545 (Canceled Entry - Provider: Automatic Discharge Provider - Comment: Automatically canceled at discontinue of medication order)1615 (Hold - Provider: Micaela Sheikh RN - Reason: Other - Comment: pt has no fuel truck driver)1943 (Not Given - Provider: Micaela Sheikh RN - Reason: Patient/family declined) morphine injection 2 mg 2 mg, Intravenous, Once, 1 dose, On Audelia 07/19/21 at 1715 1615 (Hold - Provide r: Micaela Sheikh RN - Reason: Other - Comment: pt drove self to er and states no one to drive home)1943 (Not Given - Provider: Micaela Sheikh RN - Reason: Patient/family declined) ondansetron (ZOFRAN) injection 4 mg (COMPLETED) 4 mg, Intravenous, Once, 1 dose, On Audelia 07/19/21 at 1545, IV push over 2-5 minutes. 173 (Given - Provid er: Micaela Sheikh RN) sodium chloride 0.9% bolus infusion SOLN 1,000 mL (COMPLETED) 1,000 mL, Intravenous, Administer over 15 Minutes, Once, 1 dose, On Audelia 07/19/21 at 1545 1737 (New Bag - Prov ider: Micaela Sheikh, ZAKI)1905 (Infusion Stop Time - Provider: Micaela Sheikh, ZAKI) PRN Medication Order 07/17/2021 07/18/2021 07/19/2021 iopamidol (ISOVUE-370) 76 % injection 95 mL (COMPLETED) 95 mL, Intravenous, IMG once as needed, Contrast, 1 dose, Starting on Audelia 07/19/21 at 1835, Until Audelia 07/19/21 at 1835 1835 (Given - Provid er: Lyssa Chase RTR) documented in this encounter Care Teams Application Spec Relationship Specialty Start Date End Date Olamide [place] FNP [address] [place] [address] PCP - General NURSE PRACTITIONER 07/19/21 documented as of this encounter
--- OUTSIDE RECORDS SUMMARY | 2024-10-03 09:22 | XMS_ITS | Encounter Summary ---
Author Organization [facility] Address [address] [place] [address]. [place] [address] [place] [address] Care Team Providers Care Auto Hiker Name Role Phone Unavailable Primary Care Provider Unavailabl e Encounter Details Date Type Department Care Team (Late st Contact Info) Description 12/26/2003 Abstract [facility] [address] [place] [address] Alejandro [place] MD [address] [place] [phone] Social History Tobacco Use Types Packs/Day Years Used Date Smoking Tobacco: Never Assessed Comments Unknown Sex and Gender Information Value Date Recorded Sex Assigned at Not on file Legal Sex Female 5:50 PM SETTER JUICE PACKAGING MACHINES Gender Identity Not on file Sexual Orientation Not on file documented as of this encounter Plan of Treatment Not on file documented as of this encounter Visit Diagnoses Not on filedocumented in this encounter
--- OUTSIDE RECORDS SUMMARY | 2024-10-03 09:22 | XMS_ITS | Encounter Summary ---
Author Organization [facility] Address [address] [place] [address]. [place], [place] [address] [place] [address] Care Team Providers Care Administration Internship Name Role Phone Unavailable Primary Care Provider Unavailabl e Encounter Details Date Type Department Care Team (Late st Contact Info) Description 03/10/2001 Abstract [facility] [address] [place] [address] , Generic Conversion, Social History Tobacco Use Types Packs/Day Years Used Date Smoking Tobacco: Never Assessed Comments Unknown Sex and Gender Information Value Date Recorded Sex Assigned at Not on file Legal Sex Female 5:50 PM INSIDE TESTER Gender Identity Not on file Sexual Orientation Not on file documented as of this encounter Plan of Treatment Not on file documented as of this encounter Visit Diagnoses Not on filedocumented in this encounter
--- OUTSIDE RECORDS SUMMARY | 2024-10-03 09:22 | XMS_ITS | Encounter Summary ---
Author Organization [facility] Address [address] [place] [address]. [place] [address] [place] [address] Care Team Providers Care Cdl Bulk Driver Name Role Phone Unavailable Primary Care Provider Unavailabl e Encounter Details Date Type Department Care Team (Late st Contact Info) Description 08/08/[address] [facility] [address] [place] [address] Alejandro [place] MD [address] [place] [address] Social History Tobacco Use Types Packs/Day Years Used Date Smoking Tobacco: Never Assessed Comments Unknown Sex and Gender Information Value Date Recorded Sex Assigned at Not on file Legal Sex Female 5:50 PM RN BUILDING Gender Identity Not on file Sexual Orientation Not on file documented as of this encounter Plan of Treatment Not on file documented as of this encounter Visit Diagnoses Not on filedocumented in this encounter
--- OUTSIDE RECORDS SUMMARY | 2024-10-03 09:22 | XMS_ITS | Encounter Summary ---
Author Organization [facility] Address [address] [place] [address]. [place], [place] [address] [place] [address] Care Team Providers Care Mass Communications Professor Name Role Phone Unavailable Primary Care Provider Unavailabl e Encounter Details Date Type Department Care Team (Late st Contact Info) Description 02/27/2001 Abstract [facility] [address] [place] [address] , Generic Conversion, Social History Tobacco Use Types Packs/Day Years Used Date Smoking Tobacco: Never Assessed Comments Unknown Sex and Gender Information Value Date Recorded Sex Assigned at Not on file Legal Sex Female 5:50 PM HOUSE MOVING SUPERVISOR Gender Identity Not on file Sexual Orientation Not on file documented as of this encounter Plan of Treatment Not on file documented as of this encounter Visit Diagnoses Not on filedocumented in this encounter
--- OUTSIDE RECORDS SUMMARY | 2024-10-03 09:22 | XMS_ITS | Encounter Summary ---
Author Organization [facility] Address [address] [place] [address]. [place], [place] [address] [place] [address] Care Team Providers Care Rotary Shear Worker Helper Name Role Phone Unavailable Primary Care Provider Unavailabl e Encounter Details Date Type Department Care Team (Late st Contact Info) Description 02/12/2001 Abstract [facility] [address] [place] [address] , Generic Conversion, Social History Tobacco Use Types Packs/Day Years Used Date Smoking Tobacco: Never Assessed Comments Unknown Sex and Gender Information Value Date Recorded Sex Assigned at Not on file Legal Sex Female 5:50 PM VOCATIONAL REHABILITATION SUPERVISOR Gender Identity Not on file Sexual Orientation Not on file documented as of this encounter Plan of Treatment Not on file documented as of this encounter Visit Diagnoses Not on filedocumented in this encounter
--- OUTSIDE RECORDS SUMMARY | 2024-10-03 09:22 | XMS_ITS | Encounter Summary ---
Author Organization [facility] Address [address] [place] [address]. [place], [place] [address] [place] [address] Care Team Providers Care Contractor Buyer Name Role Phone Unavailable Primary Care Provider Unavailabl e Encounter Details Date Type Department Care Team (Late st Contact Info) Description 05/09/2005 Abstract [facility] [address] [place] [address] , Nader Yañez MD Social History Tobacco Use Types Packs/Day Years Used Date Smoking Tobacco: Never Assessed Comments Unknown Sex and Gender Information Value Date Recorded Sex Assigned at Not on file Legal Sex Female 5:50 PM DIVE MASTER Gender Identity Not on file Sexual Orientation Not on file documented as of this encounter Plan of Treatment Not on file documented as of this encounter Visit Diagnoses Not on filedocumented in this encounter
--- OUTSIDE RECORDS SUMMARY | 2024-10-03 09:22 | XMS_ITS | Encounter Summary ---
Author Organization [facility] Address [address] [place] [address]. [place], [place] [address] [place] [address] Care Team Providers Care Vice President Payer Name Role Phone Unavailable Primary Care Provider Unavailabl e Encounter Details Date Type Department Care Team (Late st Contact Info) Description 07/18/2003 Abstract [facility] [address] [place] [address] , Generic Conversion, Social History Tobacco Use Types Packs/Day Years Used Date Smoking Tobacco: Never Assessed Comments Unknown Sex and Gender Information Value Date Recorded Sex Assigned at Not on file Legal Sex Female 5:50 PM CONSTRUCTION REP Gender Identity Not on file Sexual Orientation Not on file documented as of this encounter Plan of Treatment Not on file documented as of this encounter Visit Diagnoses Not on filedocumented in this encounter
--- OUTSIDE RECORDS SUMMARY | 2024-10-03 09:22 | XMS_ITS | Encounter Summary ---
Author Organization [facility] Address [address] [place] [address]. [place], [place] [id number] [place] [address] Care Team Providers Care Chief Wheelage Clerk Name Role Phone Unavailable Primary Care Provider Unavailabl e Encounter Details Date Type Department Care Team (Late st Contact Info) Description 02/05/2002 Abstract [facility] [address] [place] [address] , Generic Conversion, Social History Tobacco Use Types Packs/Day Years Used Date Smoking Tobacco: Never Assessed Comments Unknown Sex and Gender Information Value Date Recorded Sex Assigned at Not on file Legal Sex Female 5:50 PM ANIMAL DAYCARE PROVIDER Gender Identity Not on file Sexual Orientation Not on file documented as of this encounter Plan of Treatment Not on file documented as of this encounter Visit Diagnoses Not on filedocumented in this encounter
--- OUTSIDE RECORDS SUMMARY | 2024-10-03 09:22 | XMS_ITS | Encounter Summary ---
Author Organization [facility] Address [address] [place] [address]. [place], [place] [address] [place] [address] Care Team Providers Care Service Station Operator Name Role Phone Unavailable Primary Care Provider Unavailabl e Encounter Details Date Type Department Care Team (Late st Contact Info) Description 12/27/2000 Abstract [facility] [address] [place] [address] , Generic Conversion, Social History Tobacco Use Types Packs/Day Years Used Date Smoking Tobacco: Never Assessed Comments Unknown Sex and Gender Information Value Date Recorded Sex Assigned at Not on file Legal Sex Female 5:50 PM STAGE SET UP WORKER Gender Identity Not on file Sexual Orientation Not on file documented as of this encounter Plan of Treatment Not on file documented as of this encounter Visit Diagnoses Not on filedocumented in this encounter
--- OUTSIDE RECORDS SUMMARY | 2024-10-03 09:22 | XMS_ITS | Encounter Summary ---
Author Organization [facility] Address [address] [place] [address]. [place], [place] [address] [place] [address] Care Team Providers Care Supervisor Parachute Manufacturing Name Role Phone Unavailable Primary Care Provider Unavailabl e Encounter Details Date Type Department Care Team (Late st Contact Info) Description 12/26/2003 Abstract [facility] [address] [place] [address] Basilio Bolden MD [address] [place] [address] Social History Tobacco Use Types Packs/Day Years Used Date Smoking Tobacco: Never Assessed Comments Unknown Sex and Gender Information Value Date Recorded Sex Assigned at Not on file Legal Sex Female 5:50 PM TRANSCRIPTION MANAGER Gender Identity Not on file Sexual Orientation Not on file documented as of this encounter Plan of Treatment Not on file documented as of this encounter Visit Diagnoses Not on filedocumented in this encounter
--- OUTSIDE RECORDS SUMMARY | 2024-10-03 09:22 | XMS_ITS | Encounter Summary ---
Author Organization [facility] Address [address] [place] [address]. [place], [place] [address] [place] [address] Care Team Providers Care Welding Machine Operator Submerged Arc Name Role Phone Unavailable Primary Care Provider Unavailabl e Encounter Details Date Type Department Care Team (Late st Contact Info) Description 03/13/2005 Abstract [facility] [address] [place] [address] [place] [address] Sher Sesay MD [address] [place] [address] Social History Tobacco Use Types Packs/Day Years Used Date Smoking Tobacco: Never Assessed Comments Unknown Sex and Gender Information Value Date Recorded Sex Assigned at Not on file Legal Sex Female 5:50 PM LOAD CHECKER Gender Identity Not on file Sexual Orientation Not on file documented as of this encounter Plan of Treatment Not on file documented as of this encounter Visit Diagnoses Not on filedocumented in this encounter
--- OUTSIDE RECORDS SUMMARY | 2024-10-03 09:22 | XMS_ITS | Encounter Summary ---
Author Organization [facility] Address [address] [place] [address]. [place], [place] [address] [place] [address] Care Team Providers Care Knot Bumper Name Role Phone Unavailable Primary Care Provider Unavailabl e Encounter Details Date Type Department Care Team (Late st Contact Info) Description 07/14/2000 Abstract [facility] [address] [place] [address] , Generic Conversion, Social History Tobacco Use Types Packs/Day Years Used Date Smoking Tobacco: Never Assessed Comments Unknown Sex and Gender Information Value Date Recorded Sex Assigned at Not on file Legal Sex Female 5:50 PM ORAL SURGERY PHYSICIAN Gender Identity Not on file Sexual Orientation Not on file documented as of this encounter Plan of Treatment Not on file documented as of this encounter Visit Diagnoses Not on filedocumented in this encounter
--- OUTSIDE RECORDS SUMMARY | 2024-10-03 09:22 | XMS_ITS | Encounter Summary ---
Author Organization [facility] Address [address] [place] [address]. [place] [address] [place] [address] Care Team Providers Care Warehouse Stock Clerk Name Role Phone Unavailable Primary Care Provider Unavailabl e Encounter Details Date Type Department Care Team (Late st Contact Info) Description 01/09/[address] [facility] [address] [place] [address] Alejandro Small MD [address] [place] [phone] Social History Tobacco Use Types Packs/Day Years Used Date Smoking Tobacco: Never Assessed Comments Unknown Sex and Gender Information Value Date Recorded Sex Assigned at Not on file Legal Sex Female 5:50 PM CATALYST CONCENTRATION OPERATOR Gender Identity Not on file Sexual Orientation Not on file documented as of this encounter Plan of Treatment Not on file documented as of this encounter Visit Diagnoses Not on filedocumented in this encounter
--- OUTSIDE RECORDS SUMMARY | 2024-10-03 09:22 | XMS_ITS | Encounter Summary ---
Author Organization [facility] Address [address] [place] [address]. [place], [place] [address] [place] [address] Care Team Providers Care Securities Broker Name Role Phone Unavailable Primary Care Provider Unavailabl e Encounter Details Date Type Department Care Team (Late st Contact Info) Description 01/07/2001 Abstract [facility] [address] [place] [address] , Generic Conversion, Social History Tobacco Use Types Packs/Day Years Used Date Smoking Tobacco: Never Assessed Comments Unknown Sex and Gender Information Value Date Recorded Sex Assigned at Not on file Legal Sex Female 5:50 PM MEDICAL DEVICE SALES CONSULTANT Gender Identity Not on file Sexual Orientation Not on file documented as of this encounter Plan of Treatment Not on file documented as of this encounter Visit Diagnoses Not on filedocumented in this encounter
--- OUTSIDE RECORDS SUMMARY | 2024-10-03 09:22 | XMS_ITS | Encounter Summary ---
Author Organization [facility] Address [address] [place] [address]. [place], [place] [address] [place] [address] Care Team Providers Care Disk Operator Name Role Phone Unavailable Primary Care Provider Unavailabl e Encounter Details Date Type Department Care Team (Late st Contact Info) Description 02/17/2001 Abstract [facility] [address] [place] [address] , Generic Conversion, Social History Tobacco Use Types Packs/Day Years Used Date Smoking Tobacco: Never Assessed Comments Unknown Sex and Gender Information Value Date Recorded Sex Assigned at Not on file Legal Sex Female 5:50 PM DRAMA CRITIC Gender Identity Not on file Sexual Orientation Not on file documented as of this encounter Plan of Treatment Not on file documented as of this encounter Visit Diagnoses Not on filedocumented in this encounter
--- OUTSIDE RECORDS SUMMARY | 2024-10-03 09:22 | XMS_ITS | Encounter Summary ---
Author Organization [facility] Address [address] [place] [address]. [place], [place] [address] [place] [address] Care Team Providers Care Electrical Helper Name Role Phone Unavailable Primary Care Provider Unavailabl e Encounter Details Date Type Department Care Team (Late st Contact Info) Description 07/18/1994 Abstract [facility] [address] [place] [address] Isaac Ledezma MD Social History Tobacco Use Types Packs/Day Years Used Date Smoking Tobacco: Never Assessed Comments Unknown Sex and Gender Information Value Date Recorded Sex Assigned at Not on file Legal Sex Female 5:50 PM ESOL TEACHER Gender Identity Not on file Sexual Orientation Not on file documented as of this encounter Plan of Treatment Not on file documented as of this encounter Visit Diagnoses Not on filedocumented in this encounter
--- OUTSIDE RECORDS SUMMARY | 2024-10-03 09:22 | XMS_ITS | Encounter Summary ---
Author Organization [facility] Address [address] [place] [address]. [place] [address] [place] [address] Care Team Providers Care Legal Collector Name Role Phone Unavailable Primary Care Provider Unavailabl e Encounter Details Date Type Department Care Team (Late st Contact Info) Description 08/12/[address] [facility] [address] [place] [address] Alejandro Small MD [address] [place] [address] Social History Tobacco Use Types Packs/Day Years Used Date Smoking Tobacco: Never Assessed Comments Unknown Sex and Gender Information Value Date Recorded Sex Assigned at Not on file Legal Sex Female 5:50 PM PIPE TESTER Gender Identity Not on file Sexual Orientation Not on file documented as of this encounter Plan of Treatment Not on file documented as of this encounter Visit Diagnoses Not on filedocumented in this encounter
--- OUTSIDE RECORDS SUMMARY | 2024-10-03 09:22 | XMS_ITS | Encounter Summary ---
Author Organization [facility] Address [address] [place] [address]. [place], [place] [address] [place] [address] Care Team Providers Care Crude Unit Operator Name Role Phone Unavailable Primary Care Provider Unavailabl e Encounter Details Date Type Department Care Team (Late st Contact Info) Description 12/15/2000 Abstract [facility] [address] [place] [address] , Generic Conversion, Social History Tobacco Use Types Packs/Day Years Used Date Smoking Tobacco: Never Assessed Comments Unknown Sex and Gender Information Value Date Recorded Sex Assigned at Not on file Legal Sex Female 5:50 PM PHOSPHORUS PROCESSING SUPERVISOR Gender Identity Not on file Sexual Orientation Not on file documented as of this encounter Plan of Treatment Not on file documented as of this encounter Visit Diagnoses Not on filedocumented in this encounter
--- OUTSIDE RECORDS SUMMARY | 2024-10-03 09:22 | XMS_ITS | Encounter Summary ---
Author Organization [facility] Address [address] [place] [address]. [place], [place] [address] [place] [address] Care Team Providers Care Finisher Merchant Products Name Role Phone Unavailable Primary Care Provider Unavailabl e Encounter Details Date Type Department Care Team (Late st Contact Info) Description 03/12/2001 Abstract [facility] [address] [place] [address] , Generic Conversion, Social History Tobacco Use Types Packs/Day Years Used Date Smoking Tobacco: Never Assessed Comments Unknown Sex and Gender Information Value Date Recorded Sex Assigned at Not on file Legal Sex Female 5:50 PM CAR DUMPER OPERATOR Gender Identity Not on file Sexual Orientation Not on file documented as of this encounter Plan of Treatment Not on file documented as of this encounter Visit Diagnoses Not on filedocumented in this encounter
--- OUTSIDE RECORDS SUMMARY | 2024-10-03 09:22 | XMS_ITS | Encounter Summary ---
Author Organization [facility] Address [address] [place] [address]. [place], [place] [address] [place] [address] Care Team Providers Care Reaming Machine Operator For Plastic Name Role Phone Unavailable Primary Care Provider Unavailabl e Encounter Details Date Type Department Care Team (Late st Contact Info) Description 10/30/2004 Abstract [facility] [place] [address] Social History Tobacco Use Types Packs/Day Years Used Date Smoking Tobacco: Never Assessed Comments Unknown Sex and Gender Information Value Date Recorded Sex Assigned at Not on file Legal Sex Female 5:50 PM FIELD MARKETING TEAM LEADER Gender Identity Not on file Sexual Orientation Not on file documented as of this encounter Plan of Treatment Not on file documented as of this encounter Visit Diagnoses Not on filedocumented in this encounter
--- OUTSIDE RECORDS SUMMARY | 2024-10-03 09:22 | XMS_ITS | Encounter Summary ---
Author Organization [facility] Address [address] [place] [address]. [place] [address] [place] [address] Care Team Providers Care Meter Shop Superintendent Name Role Phone Unavailable Primary Care Provider Unavailabl e Encounter Details Date Type Department Care Team (Late st Contact Info) Description 12/26/2004 Abstract [facility] [address] [place] [address] Alejandro Small MD [address] [place] [phone] Social History Tobacco Use Types Packs/Day Years Used Date Smoking Tobacco: Never Assessed Comments Unknown Sex and Gender Information Value Date Recorded Sex Assigned at Not on file Legal Sex Female 5:50 PM FLAP MAKER Gender Identity Not on file Sexual Orientation Not on file documented as of this encounter Plan of Treatment Not on file documented as of this encounter Visit Diagnoses Not on filedocumented in this encounter
--- OUTSIDE RECORDS SUMMARY | 2024-10-03 09:22 | XMS_ITS | Encounter Summary ---
Author Organization [facility] Address [address] [place] [address]. [place] [address] [place] [address] Care Team Providers Care Surveying Crew Rodman Name Role Phone Unavailable Primary Care Provider Unavailabl e Encounter Details Date Type Department Care Team (Late st Contact Info) Description 08/10/[address] [facility] [address] [place] [address] Alejandro Small MD [address] [place] [address] Social History Tobacco Use Types Packs/Day Years Used Date Smoking Tobacco: Never Assessed Comments Unknown Sex and Gender Information Value Date Recorded Sex Assigned at Not on file Legal Sex Female 5:50 PM STONECUTTER ASSISTANT Gender Identity Not on file Sexual Orientation Not on file documented as of this encounter Plan of Treatment Not on file documented as of this encounter Visit Diagnoses Not on filedocumented in this encounter
--- OUTSIDE RECORDS SUMMARY | 2024-10-03 09:22 | XMS_ITS | Encounter Summary ---
Author Organization [facility] Address [address] [place] [address]. [place] [address] [place] [address] Care Team Providers Care Corporate Development Officer Name Role Phone Unavailable Primary Care Provider Unavailabl e Encounter Details Date Type Department Care Team (Late st Contact Info) Description 04/24/2004 Abstract [facility] [address] [place] [address] Ron Medina MD [address] [place] [phone] Social History Tobacco Use Types Packs/Day Years Used Date Smoking Tobacco: Never Assessed Comments Unknown Sex and Gender Information Value Date Recorded Sex Assigned at Not on file Legal Sex Female 5:50 PM TAX COMPLIANCE AGENT Gender Identity Not on file Sexual Orientation Not on file documented as of this encounter Plan of Treatment Not on file documented as of this encounter Visit Diagnoses Not on filedocumented in this encounter
--- OUTSIDE RECORDS SUMMARY | 2024-10-03 09:22 | XMS_ITS | Encounter Summary ---
Author Organization [facility] Address [address] [place] [address]. [place], [place] [address] [place] [address] Care Team Providers Care Medical Assistant Float Name Role Phone Unavailable Primary Care Provider Unavailabl e Encounter Details Date Type Department Care Team (Late st Contact Info) Description 03/02/2001 Abstract [facility] [address] [place] [address] , Generic Conversion, Social History Tobacco Use Types Packs/Day Years Used Date Smoking Tobacco: Never Assessed Comments Unknown Sex and Gender Information Value Date Recorded Sex Assigned at Not on file Legal Sex Female 5:50 PM ENROLLMENT CONSULTANT Gender Identity Not on file Sexual Orientation Not on file documented as of this encounter Plan of Treatment Not on file documented as of this encounter Visit Diagnoses Not on filedocumented in this encounter
--- OUTSIDE RECORDS SUMMARY | 2024-10-03 09:22 | XMS_ITS | Encounter Summary ---
Author Organization [facility] Address [address] [place] [address]. [place], [place] [address] [place] [address] Care Team Providers Care It Integration Architect Name Role Phone Unavailable Primary Care Provider Unavailabl e Encounter Details Date Type Department Care Team (Late st Contact Info) Description 02/05/2001 Abstract [facility] [address] [place] [address] , Generic Conversion, Social History Tobacco Use Types Packs/Day Years Used Date Smoking Tobacco: Never Assessed Comments Unknown Sex and Gender Information Value Date Recorded Sex Assigned at Not on file Legal Sex Female 5:50 PM INSECTICIDE SUPERVISOR Gender Identity Not on file Sexual Orientation Not on file documented as of this encounter Plan of Treatment Not on file documented as of this encounter Visit Diagnoses Not on filedocumented in this encounter
--- OUTSIDE RECORDS SUMMARY | 2024-10-03 09:22 | XMS_ITS | Encounter Summary ---
Author Organization [facility] Address [address] [place] [address]. [place] [address] [place] [address] Care Team Providers Care Helper Teacher Name Role Phone Unavailable Primary Care Provider Unavailabl e Encounter Details Date Type Department Care Team (Late st Contact Info) Description 05/09/[address] [facility] [address] [place] [address] Alejandro mSall MD [address] [place] [address] Social History Tobacco Use Types Packs/Day Years Used Date Smoking Tobacco: Never Assessed Comments Unknown Sex and Gender Information Value Date Recorded Sex Assigned at Not on file Legal Sex Female 5:50 PM GRADUATE STUDENT Gender Identity Not on file Sexual Orientation Not on file documented as of this encounter Plan of Treatment Not on file documented as of this encounter Visit Diagnoses Not on filedocumented in this encounter
--- OUTSIDE RECORDS SUMMARY | 2024-10-03 09:22 | XMS_ITS | Encounter Summary ---
Author Organization [facility] Address [address] [place] [address]. [place], [place] [address] [place] [address] Care Team Providers Care Numerical Tool Programmer Name Role Phone Unavailable Primary Care Provider Unavailabl e Encounter Details Date Type Department Care Team (Late st Contact Info) Description 12/17/2004 Abstract [facility] [address] [place] [address] [place] [address] Lalito Nieto MD [facility] [place] [address] Social History Tobacco Use Types Packs/Day Years Used Date Smoking Tobacco: Never Assessed Comments Unknown Sex and Gender Information Value Date Recorded Sex Assigned at Not on file Legal Sex Female 5:50 PM HIGH SCHOOL MATHEMATICS TEACHER Gender Identity Not on file Sexual Orientation Not on file documented as of this encounter Plan of Treatment Not on file documented as of this encounter Visit Diagnoses Not on filedocumented in this encounter
--- OUTSIDE RECORDS SUMMARY | 2024-10-03 09:22 | XMS_ITS | Encounter Summary ---
Author Organization [facility] Address [address] [place] [address]. [place] [address] [place] [address] Care Team Providers Care Manager Float Name Role Phone Unavailable Primary Care Provider Unavailabl e Encounter Details Date Type Department Care Team (Late st Contact Info) Description 08/21/[address] [facility] [address] [place] [address] Alejandro Small MD [address] [place] [address] Social History Tobacco Use Types Packs/Day Years Used Date Smoking Tobacco: Never Assessed Comments Unknown Sex and Gender Information Value Date Recorded Sex Assigned at Not on file Legal Sex Female 5:50 PM PORCELAIN FINISH SPRAYER Gender Identity Not on file Sexual Orientation Not on file documented as of this encounter Plan of Treatment Not on file documented as of this encounter Visit Diagnoses Not on filedocumented in this encounter
--- OUTSIDE RECORDS SUMMARY | 2024-10-03 09:22 | XMS_ITS | Encounter Summary ---
Author Organization [facility] Address [address] [place] [address]. [place], [place] [address] [place] [address] Care Team Providers Care Day Camp Counselor Name Role Phone Unavailable Primary Care Provider Unavailabl e Encounter Details Date Type Department Care Team (Late st Contact Info) Description 03/06/2001 Abstract [facility] [address] [place] [address] , Generic Conversion, Social History Tobacco Use Types Packs/Day Years Used Date Smoking Tobacco: Never Assessed Comments Unknown Sex and Gender Information Value Date Recorded Sex Assigned at Not on file Legal Sex Female 5:50 PM PROGRAM MANAGEMENT MANAGER Gender Identity Not on file Sexual Orientation Not on file documented as of this encounter Plan of Treatment Not on file documented as of this encounter Visit Diagnoses Not on filedocumented in this encounter
--- OUTSIDE RECORDS SUMMARY | 2024-10-03 09:22 | XMS_ITS | Encounter Summary ---
Author Organization [facility] Address [address] [place] [address]. [place], [place] [address] [place] [address] Care Team Providers Care Barge Engineer Name Role Phone Unavailable Primary Care Provider Unavailabl e Encounter Details Date Type Department Care Team (Late st Contact Info) Description 11/02/2000 Abstract [facility] [address] [place] [address] , Generic Conversion, Social History Tobacco Use Types Packs/Day Years Used Date Smoking Tobacco: Never Assessed Comments Unknown Sex and Gender Information Value Date Recorded Sex Assigned at Not on file Legal Sex Female 5:50 PM CROP SUPERVISOR Gender Identity Not on file Sexual Orientation Not on file documented as of this encounter Plan of Treatment Not on file documented as of this encounter Visit Diagnoses Not on filedocumented in this encounter
--- OUTSIDE RECORDS SUMMARY | 2024-10-03 09:22 | XMS_ITS | Encounter Summary ---
Author Organization [facility] Address [address] [place] [address]. [place] [address] [place] [address] Care Team Providers Care Pressure Controller Name Role Phone Unavailable Primary Care Provider Unavailabl e Encounter Details Date Type Department Care Team (Late st Contact Info) Description 12/21/2004 Abstract [facility] [address] [place] [address] Alejandro Small MD [address] [place] [phone] Social History Tobacco Use Types Packs/Day Years Used Date Smoking Tobacco: Never Assessed Comments Unknown Sex and Gender Information Value Date Recorded Sex Assigned at Not on file Legal Sex Female 5:50 PM HOP SEPARATOR Gender Identity Not on file Sexual Orientation Not on file documented as of this encounter Plan of Treatment Not on file documented as of this encounter Visit Diagnoses Not on filedocumented in this encounter
--- OUTSIDE RECORDS SUMMARY | 2024-10-03 09:22 | XMS_ITS | Encounter Summary ---
Author Organization [facility] Address [address] [place] [address]. [place], [place] [address] [place] [address] Care Team Providers Care Respiratory Therapy Assistant Name Role Phone Unavailable Primary Care Provider Unavailabl e Encounter Details Date Type Department Care Team (Late st Contact Info) Description 02/05/2001 Abstract [facility] [address] [place] [address] , Generic Conversion, Social History Tobacco Use Types Packs/Day Years Used Date Smoking Tobacco: Never Assessed Comments Unknown Sex and Gender Information Value Date Recorded Sex Assigned at Not on file Legal Sex Female 5:50 PM EDI PROGRAMMER ANALYST Gender Identity Not on file Sexual Orientation Not on file documented as of this encounter Plan of Treatment Not on file documented as of this encounter Visit Diagnoses Not on filedocumented in this encounter
--- OUTSIDE RECORDS SUMMARY | 2024-10-03 09:22 | XMS_ITS | Encounter Summary ---
Author Organization [facility] Address [address] [place] [address]. [place], [place] [address] [place] [address] Care Team Providers Care Human Resource Adviser Name Role Phone Unavailable Primary Care Provider Unavailabl e Encounter Details Date Type Department Care Team (Late st Contact Info) Description 02/10/2001 Abstract [facility] [address] [place] [address] , Generic Conversion, Social History Tobacco Use Types Packs/Day Years Used Date Smoking Tobacco: Never Assessed Comments Unknown Sex and Gender Information Value Date Recorded Sex Assigned at Not on file Legal Sex Female 5:50 PM DIVING INSTRUCTOR Gender Identity Not on file Sexual Orientation Not on file documented as of this encounter Plan of Treatment Not on file documented as of this encounter Visit Diagnoses Not on filedocumented in this encounter
--- OUTSIDE RECORDS SUMMARY | 2024-10-03 09:22 | XMS_ITS | Encounter Summary ---
Author Organization [facility] Address [address] [place] [address]. [place], [place] [address] [place] [address] Care Team Providers Care Phytopathology Teacher Name Role Phone Unavailable Primary Care Provider Unavailabl e Encounter Details Date Type Department Care Team (Late st Contact Info) Description 07/23/1994 Abstract [facility] [address] [place] [address] Isaac Ledezma MD Social History Tobacco Use Types Packs/Day Years Used Date Smoking Tobacco: Never Assessed Comments Unknown Sex and Gender Information Value Date Recorded Sex Assigned at Not on file Legal Sex Female 5:50 PM POOLING OPERATOR Gender Identity Not on file Sexual Orientation Not on file documented as of this encounter Plan of Treatment Not on file documented as of this encounter Visit Diagnoses Not on filedocumented in this encounter
--- OUTSIDE RECORDS SUMMARY | 2024-10-03 09:22 | XMS_ITS | Encounter Summary ---
Author Organization [facility] Address [address] [place] [address]. [place], [place] [address] [place] [address] Care Team Providers Care Machine Operator Packaging Name Role Phone Unavailable Primary Care Provider Unavailabl e Encounter Details Date Type Department Care Team (Late st Contact Info) Description 02/09/2001 Abstract [facility] [address] [place] [address] , Generic Conversion, Social History Tobacco Use Types Packs/Day Years Used Date Smoking Tobacco: Never Assessed Comments Unknown Sex and Gender Information Value Date Recorded Sex Assigned at Not on file Legal Sex Female 5:50 PM MUSIC THEORY PROFESSOR Gender Identity Not on file Sexual Orientation Not on file documented as of this encounter Plan of Treatment Not on file documented as of this encounter Visit Diagnoses Not on filedocumented in this encounter
--- OUTSIDE RECORDS SUMMARY | 2024-10-03 09:22 | XMS_ITS | Encounter Summary ---
Author Organization [facility] Address [address] [place] [address]. [place] [address] [place] [address] Care Team Providers Care Room Service Associate Name Role Phone Unavailable Primary Care Provider Unavailabl e Encounter Details Date Type Department Care Team (Late st Contact Info) Description 08/01/2005 Abstract [facility] [address] [place] [address] Alejandro Small MD [address] [place] [phone] Social History Tobacco Use Types Packs/Day Years Used Date Smoking Tobacco: Never Assessed Comments Unknown Sex and Gender Information Value Date Recorded Sex Assigned at Not on file Legal Sex Female 5:50 PM ETHYLENE COMPRESSOR OPERATOR Gender Identity Not on file Sexual Orientation Not on file documented as of this encounter Plan of Treatment Not on file documented as of this encounter Visit Diagnoses Not on filedocumented in this encounter
--- OUTSIDE RECORDS SUMMARY | 2024-10-03 09:22 | XMS_ITS | Encounter Summary ---
Author Organization [facility] Address [address] [place] [address]. [place], [place] [address] [place] [address] Care Team Providers Care Door Operator Name Role Phone Unavailable Primary Care Provider Unavailabl e Encounter Details Date Type Department Care Team (Late st Contact Info) Description 02/24/2001 Abstract [facility] [address] [place] [address] , Generic Conversion, Social History Tobacco Use Types Packs/Day Years Used Date Smoking Tobacco: Never Assessed Comments Unknown Sex and Gender Information Value Date Recorded Sex Assigned at Not on file Legal Sex Female 5:50 PM EMERGENCY ROOM ORDERLY Gender Identity Not on file Sexual Orientation Not on file documented as of this encounter Plan of Treatment Not on file documented as of this encounter Visit Diagnoses Not on filedocumented in this encounter
--- OUTSIDE RECORDS SUMMARY | 2024-10-03 09:22 | XMS_ITS | Encounter Summary ---
Author Organization [facility] Address [address] [place] [address]. [place] [address] [place] [address] Care Team Providers Care Steam Hand Name Role Phone Unavailable Primary Care Provider Unavailabl e Encounter Details Date Type Department Care Team (Late st Contact Info) Description 06/08/2004 Abstract [facility] [address] [place] [address] Lencho Hammond MD [address] [place] [address] Social History Tobacco Use Types Packs/Day Years Used Date Smoking Tobacco: Never Assessed Comments Unknown Sex and Gender Information Value Date Recorded Sex Assigned at Not on file Legal Sex Female 5:50 PM BUSINESS ADMINISTRATOR Gender Identity Not on file Sexual Orientation Not on file documented as of this encounter Plan of Treatment Not on file documented as of this encounter Visit Diagnoses Not on filedocumented in this encounter
--- OUTSIDE RECORDS SUMMARY | 2024-10-03 09:22 | XMS_ITS | Encounter Summary ---
Author Organization [facility] Address [address] [place] [address]. [place], [place] [address] [place] [address] Care Team Providers Care Email Specialist Name Role Phone Unavailable Primary Care Provider Unavailabl e Encounter Details Date Type Department Care Team (Late st Contact Info) Description 02/20/2001 Abstract [facility] [address] [place] [address] , Generic Conversion, Social History Tobacco Use Types Packs/Day Years Used Date Smoking Tobacco: Never Assessed Comments Unknown Sex and Gender Information Value Date Recorded Sex Assigned at Not on file Legal Sex Female 5:50 PM PLAYGROUND EQUIPMENT ERECTOR Gender Identity Not on file Sexual Orientation Not on file documented as of this encounter Plan of Treatment Not on file documented as of this encounter Visit Diagnoses Not on filedocumented in this encounter
== END 2024-09-26 23:10 | disposition home or self-care (01) ==
PROVIDERS: Emergency Provider Family Medicine; PCP Nurse Practitioner Family
DX: L03.317 Cellulitis of buttock (principal); Z20.822 Contact with and (suspected) exposure to COVID-19
CPT/HCPCS: 36415; 74177; 80053; 81025; 83605; 85025; 86140; 87070; 87075; 87205; 87637; 96365; 99284; J7030; Q9967

== ENCOUNTER 2025-07-20 19:14 | Emergency (ER) | payer OTHER, SELFPAY ==
[2025-07-20 19:16] VITALS: BP 134/80; PULSE 84; RESP 16; TEMP 36.4; O2SAT 100
--- NOTE | 2025-07-20 19:25 | ED_ITS ---
HPI - Dental/Oral General Chief complaint: Dental/Oral Stated complaint: face swelling Time Seen by Provider: 07/20/25 19:16 Source: patient Mode of arrival: ambulatory Limitations: no limitations History of Present Illness HPI Narrative: 44-year-old female with a history of CVA, fibromyalgia, status post BTL presents to the ED with a 3 day history of --left lower dental pain with jaw swelling The patient has extensive dental caries. He presents to the ED with pain and swelling around left lower 2nd premolar. The swelling around the jaw. No fever or chills Complaint: tooth pain Location: Tooth # (20) Onset (ago): day(s) (3 days) Duration: constant Severity: severe Relieving factors: nothing Exacerbating factors: cold and heat Context: history of dental caries Treatment prior to arrival: none Related Data Allergies Allergy/AdvReac Type Severity Reaction Status Date / Time acetaminophen (Vicodin) Allergy Intermediate nausea Verified 09/26/24 21:47 naproxen Allergy Intermediate Difficulty Verified 09/26/24 21:47 Breathing sumatriptan (Imitrex) Allergy Intermediate headache, Verified 09/26/24 21:47 nausea aspirin Allergy Nausea and Verified 09/26/24 21:47 Vomiting hydrocodone Allergy Nausea and Verified 09/26/24 21:47 Vomiting oxycodone Allergy Nausea and Verified 09/26/24 21:47 Vomiting Sulfonamides Allergy Intermediate Other Uncoded 09/26/24 21:47 Review of Systems Review of Systems: All systems reviewed & are unremarkable except as noted in HPI and below PMFSH Past Medical History Medical History Fibromyalgia CVA (cerebral vascular accident) Surgical History Surgical History No significant past surgical history Family History Family History Mother No significant family history Social History Social History Smoking status: Never smoker Exam Narrative: Afebrile. Blood pressure is 134/80. Oxygen saturation of 100% on room air Const: General: ill appearing Orientation/consciousness: patient oriented x3 Limitations: no limitations HENMT: Head: normal to inspection Ears: external ears normal Face/Nose/Sinus: Normal external nose present Face and sinus: normal facial exam (Swelling of left lower jaw) Mouth: Yes Normal oral and palatal mucosa present Teeth and gingiva: abnormal tooth and associated gingiva Throat: posterior oropharynx normal Other: Multiple carious teeth. Swelling around the left lower 2nd premolar. Swelling of the adjoining jaw. No upper cervical lymphadenopathy. Eyes: Conjunctivae: conjunctivae normal Pupils: Equal, round and reactive pupils present EOM: EOMs intact bilaterally Direct Ophthalmoscopy: no photophobia Neck: Neck: normal visual inspection, no lymphadenopathy and no meningeal signs Chest: Chest palpation & inspection: normal inspection of the chest Resp: Effort & Inspection: normal respiratory effort Auscultation: clear to auscultation bilaterally Cardio: Rate: regular rate Rhythm: regular rhythm GI: GI Palp: Yes Soft to palpation Auscultation: normal bowel sounds Other: No tenderness/rigidity/rebound. : General: Yes no CVA tenderness Back/Spine/Pelvis: Back: no CVA tenderness Skin: General skin exam: normal color Rashes: no rashes Wounds: no wounds Neuro: General: patient oriented x3, moves all extremities, no meningeal signs, no focal motor deficits and CN's II-XI intact bilaterally Cranial nerves: Yes Nystagmus not present Speech: normal speech Extrem: General: normal to inspection, no clubbing, cyanosis or edema and no pedal edema Psych: Mental Status: mental status grossly normal Affect: normal affect Attitude: cooperative Course Course Emergency Course: Dental caries--tooth 20. With surrounding gingivitis Jaw swelling Vital Signs Vital signs: Vital Signs Temperature 36.4 C 07/20/25 19:16 Pulse Rate 84 07/20/25 19:16 Respiratory Rate 16 07/20/25 19:16 Blood Pressure 134/80 07/20/25 19:16 Pulse Oximetry 100 07/20/25 19:16 Oxygen Delivery Room Air 07/20/25 19:16 Temperature 36.4 C 07/20/25 19:16 Pulse Rate 84 07/20/25 19:16 Respiratory Rate 16 07/20/25 19:16 Blood Pressure 134/80 07/20/25 19:16 Pulse Oximetry 100 07/20/25 19:16 Oxygen Delivery Room Air 07/20/25 19:16 MDM - Dental/Oral MDM Narrative Medical decision making narrative: Dental pain Dental caries Differential Diagnosis Differential diagnosis: Likely gingival abscess Medical Records Attestation: I reviewed the patient's medical records. Discharge Plan Discharge Clinical Impression: Toothache, Dental caries Patient Disposition: Home Condition: Stable Instructions: Antibiotic Form, Dental Abscess (ED), Toothache (ED) Patient Language: Polish Prescriptions: New amoxicillin-pot clavulanate 875-125 mg tablet 1 tablet PO Q12H Qty: 14 0RF No Action clindamycin HCl 150 mg capsule 450 mg PO TID 5 Days Qty: 45 0RF Follow-up/Referrals: Olamide Dawson NP [Primary Care Provider, Family Practice] Stand Alone Forms: Work/School Release IP Time of Disposition: 19:40
[2025-07-20] MEDS: traMADol HCL (*CRX) 50 MG TABLET PO (19:38)
--- OUTSIDE RECORDS SUMMARY | 2025-07-20 19:50 | XMS_ITS | Encounter Summary ---
Author Organization [facility] Address [address] [place] [id number] Care Team Providers Care Hand I Tube Bender Name Role Phone Olamide Dawson Primary Care Provider [phone] Encounter Details Date Type Department Care Team (Late st Contact Info) Description 02/27/2019 Abstract SFL CONVERSION [address] [place] [address] , Generic Conversion, Social History Tobacco Use Types Packs/Day Years Used Date Smoking Tobacco: Never Assessed Comments Unknown Sex and Gender Information Value Date Recorded Sex Assigned at Not on file Legal Sex Female 5:50 PM FILM MAKER Gender Identity Not on file Sexual Orientation Not on file documented as of this encounter Plan of Treatment Not on file documented as of this encounter Visit Diagnoses Not on filedocumented in this encounter Care Teams Hand I Tube Bender Relationship Specialty Start Date End Date Olamide Dawson FNP [address] [place] [address] PCP - General NURSE PRACTITIONER 07/19/21 documented as of this encounter
--- OUTSIDE RECORDS SUMMARY | 2025-07-20 19:50 | XMS_ITS | Clinical Summary ---
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 Gender Identity Not on file Sexual Orientation Not on file Last Filed Vital Signs Vital Sign Reading Time Taken Comments Blood Pressure 132/91 07/19/2021 7:00 PM CDT Pulse 77 07/19/2021 6:06 PM CDT Temperature 37.5 C (99.5 F) 07/19/2021 3:12 PM CDT Respiratory Rate 18 07/19/2021 7:00 PM CDT Oxygen Saturation 99% 07/19/2021 7:00 PM CDT Inhaled Oxygen Concentration - - Weight 95.3 kg (210 lb) 07/19/2021 3:12 PM CDT Height 168.9 cm (5' 6.5) 07/19/2021 3:12 PM CDT Body Mass Index 33.39 07/19/2021 3:12 PM CDT Plan of Treatment Health Maintenance Due Date Last Done Comments Cervical Cancer Screening Pa p Smear (Age 30 to 64) Every 3 Years 1979 Colorectal Cancer Screening Colonoscopy (10 Years) 1979 Annual Physical 1982 Hepatitis C 1997 DTaP, Tdap and Td Vaccines ( 1 - Tdap) 1998 Hepatitis B Vaccines (1 of 3 - 19+ 3-dose series) 1998 Pneumococcal Vaccine: Pediat rics (0 to 5 Years) and At-Risk Patients (6 to 49 Years) (1 of 2 - PCV) 1998 HPV Vaccines (1 - 3-dose SCD M series) 2006 Cervical Cancer Screening Pa p with HPV Testing (Age 30 to 64) Every 5 Years 2009 Cervical Cancer Screening with HPV 2009 Mammogram Screening 2019 COVID-19 Vaccine (2024-2 6 season) 2025 Influenza Adult (#1) 2025 Hepatitis A Vaccines Aged Out No long er eligible based on patient's age to complete this topic Meningococcal B Vaccine Aged Out No l onger eligible based on patient's age to complete this topic Meningococcal Vaccine Aged Out No kevan fiordaliza eligible based on patient's age to complete this topic RSV Immunizations Under 20 Months Aged Out No longer eligible based on patient's age to complete this topic Insurance [employer] Care Teams Systems Analyst Relationship Specialty Start Date End Date Olamide Dawson, ALVIN [address] [place] [address] PCP - General NURSE PRACTITIONER 07/19/21
== END 2025-07-20 20:09 | disposition home or self-care (01) ==
LOC: CHSED 19:48
PROVIDERS: Emergency Provider Internal Medicine Critical Care Medicine; PCP Nurse Practitioner Family
DX: K02.9 Dental caries, unspecified (principal); Z86.73 Personal history of transient ischemic attack (TIA), and cerebral infarction without residual deficits
CPT/HCPCS: 99283; A9270